=== PATIENT | female | born 1955 | race Caucasian/White ===

== ENCOUNTER 2017-06-23 14:11 | Inpatient (IN) ==
[2017-06-23 16:41] LABS: Basophils % 0.3 %; Eosinophils # 0.1 K/mcL (0.0-0.6); Eosinophils % 2.3 %; Hematocrit 35.5 % (35.3-44.9); Hemoglobin 11.5 g/dL (11.5-15.4); Immature Granulocytes % 0.2 % (0-4); Lymphocytes # 1.4 K/mcL (0.6-4.6); Lymphocytes % 22.1 %; Mean Corpuscular HGB Conc 32.4 g/dL (31.6-35.5); Mean Corpuscular Hemoglobin 29.6 pg (28.0-33.3); Mean Corpuscular Volume 91.3 fL (83.0-100.0); Mean Platelet Volume 10.6 fL (9.4-12.4); Monocytes # 0.5 K/mcL (0.0-1.3); Monocytes % 8.8 %; Neutrophils # 4.1 K/mcL (1.6-8.9); Platelet Count 182 K/mcL (140-400); Red Blood Count 3.89 M/mcL (3.82-4.97); Red Cell Distribution Width 14.5 % (11.5-14.5); Segmented Neutrophils % 66.3 %
[2017-06-23 16:53] LABS: Calcium 9.2 mg/dL (8.6-10.8); Potassium 4.1 mEq/L (3.5-4.5)
[2017-06-23] MEDS ORDERED: Nitroglycerin 0.4 MG TAB.SUBL SL PRN (17:05)
[2017-06-23] MEDS ORDERED: Aspirin 81 MG TAB.CHEW PO STA (17:05)
[2017-06-23] MEDS ORDERED: Furosemide 40 MG in 0.9 % Sodium Chloride 50 ML IVPB ONE (17:29)
--- NOTE | 2017-06-23 17:52 | Emergency Department Note ---
Disposition Clinical Impression: Acute CHF (congestive heart failure) Qualifiers: Congestive heart failure type: unspecified congestive heart failure type Qualified Code(s): I50.9 - Heart failure, unspecified Chest pain Qualifiers: Chest pain type: unspecified Qualified Code(s): R07.9 - Chest pain, unspecified Disposition: Admitted As Inpatient Condition: Fair Time of Disposition: 18:00 General Adult HPI - General Chief complaint: ED Shortness of Breath/Dyspnea Stated complaint: STEPHANI Time Seen by Provider: 06/23/17 16:18 Source: patient Mode of arrival: ambulatory Limitations: no limitations Nursing Notes Reviewed: Yes Vital Signs Reviewed: Yes - History of Present Illness HPI Narrative: Patient is a 62-year-old female with a past medical history of COPD and chronic renal failure stage III is presenting with complaint of shortness of breath, chest pressure and a cough that has been going on for the past 2 weeks. She was initially treated with a 5 day course of Z-Michael however symptoms have not been improving. She states she has felt nauseous and beginning but no longer feels nauseous now. She has had night sweats past couple of nights. She has no cardiac history and she does not remember her last stress test. Pain Scale: 5 - Related Data Home Medications Medication Instructions Recorded Confirmed Albuterol Sulfate [Proair 2 inh IN Q4H PRN 06/20/15 06/23/17 Respiclick] Aspirin Enteric Coated [Aspirin EC] 81 mg PO DAILY 06/20/15 06/23/17 Insulin ASPART [NovoLOG] 1 unit SQ AD PRN 06/20/15 06/23/17 Albuterol Neb [Proventil Neb] 2.5 mg IH Q4HR PRN 12/31/16 06/23/17 Atenolol [Tenormin] 25 mg PO DAILY 12/31/16 06/23/17 Atorvastatin Calcium [Lipitor] 80 mg PO HS 12/31/16 06/23/17 Budesonide/Formoterol 160/4.5 2 puff IH BIDR 12/31/16 06/23/17 [Symbicort 160/4.5] Cholecalciferol (D-3) [Vitamin D] 5,000 unit PO DAILY 12/31/16 06/23/17 Citalopram Hydrobromide [Celexa] 40 mg PO DAILY 12/31/16 06/23/17 Folic Acid [Folic Acid] 0.8 mg PO BID 12/31/16 06/23/17 Montelukast [Singulair] 10 mg PO HS 12/31/16 06/23/17 Pregabalin [Lyrica] 150 mg PO BID 12/31/16 06/23/17 Valsartan [Diovan] 40 mg PO DAILY 12/31/16 06/23/17 Dulaglutide [Trulicity] 1.5 mg SQ QWEEK 06/23/17 06/23/17 Omeprazole [PriLOSEC] 40 mg PO DAILY 06/23/17 06/23/17 Previous Rx's Medication Instructions Recorded LORazepam [Ativan] 1 mg PO HS PRN #30 tablet 11/03/16 Ondansetron HCl [Zofran] 4 mg PO BID PRN #60 tablet 04/13/17 OxyCODONE Immed Rel [Roxicodone 5 5 mg PO Q8HR PRN #90 tablet 04/13/17 MG] Letrozole [Femara] 2.5 mg PO DAILY #30 tablet 06/03/17 Allergies Allergy/AdvReac Type Severity Reaction Status Date / Time anastrozole Allergy Itching Verified 12/31/16 11:03 exemestane Allergy Rash Verified 12/31/16 11:03 linagliptin [From Tradjenta] Allergy Rash Verified 12/31/16 11:03 All systems ED: reviewed and negative except as stated. Constitutional: Denies: fever, chills Cardiovascular: Reports: chest pain, dyspnea on exertion Respiratory: Reports: cough, dyspnea. Denies: wheezes Gastrointestinal: Reports: abdominal pain. Denies: nausea, vomiting Musculoskeletal: Reports: back pain Past Medical History - Past Medical History Medical history: Reports: asthma, cancer, CHF, COPD, diabetes, GERD, hyperlipidemia, hypertension, renal disease, other Surgical history: Reports: breast surgery, cholecystectomy, orthopedic, other Psychiatric history: Reports: depression PERSONNEL OFFICER history: Reports: no PERSONNEL OFFICER history - Social History Smoking Status: Never smoker Smokeless Tobacco Status: No Alcohol use: Reports: none Drug use: Reports: none Physical Exam - General Limitations: no limitations General appearance: alert, in no apparent distress - Head Head exam: atraumatic, normocephalic, normal inspection - Eye Eye exam: Present: normal appearance, PERRL, EOMI - ENT ENT exam: normal exam, normal oropharynx, mucous membranes dry - Neck Neck exam: Present: normal inspection, full ROM, trachea midline - Chest Chest inspection: Present: normal inspection, symmetric chest wall rise. Absent : tenderness - Respiratory Respiratory exam: Present: normal lung sounds bilaterally. Absent: respiratory distress - Cardiovascular Cardiovascular exam: Present: regular rate, normal rhythm, normal heart sounds - Abdominal Exam Abdominal exam: Present: soft, Non-Tender, normal bowel sounds - Extremities Exam Extremities exam: Present: normal inspection, full ROM. Absent: tenderness - Back Exam Back exam: Present: normal inspection, full ROM. Absent: tenderness - Neurological Exam Neurological exam: Present: alert, oriented X3 - Psychiatric Psychiatric exam: Present: normal affect, normal mood - Skin Skin exam: Present: warm, dry, intact, normal color Course Course Narrative: The cardiac work up of this patient including a troponin, EKG and chest x-ray. I will also order a BNP. I will also order for the patient to receive aspirin and nitroglycerin since she is currently having her chest pressure-like pain. - Reevaluation(s) Reevaluation #1: Reviewed the patient's labs. She does have elevated BNP, CBC is unremarkable, and troponin was negative. Her creatinine and GFR were read normal however this is consistent with her old labs and her history of kidney disease. Her chest x- ray showed early signs of CHF. I ordered 40 mg IV of Lasix for the patient however understand that she is hard stick for IV and nurses are working on an IV for her. I discussed these findings with the patient I discussed my plan to admit the patient for new acute onset CHF and her chest pain. Patient agrees with this plan. Time: 18:14 Vital Signs Temperature 98.2 F 06/23/17 14:34 Pulse Rate 64 06/23/17 14:34 Respiratory Rate 18 06/23/17 14:34 Blood Pressure 165/72 06/23/17 14:34 O2 Sat by Pulse Oximetry 94 06/23/17 14:34 Temperature 98.2 F 06/23/17 14:34 Pulse Rate 64 06/23/17 14:34 Respiratory Rate 18 06/23/17 14:34 Blood Pressure 165/72 06/23/17 14:34 O2 Sat by Pulse Oximetry 94 06/23/17 14:34 Oxygen Delivery Oxygen Delivery Room Air Medical Decision Making - Medical Records Medical records reviewed: Yes I reviewed the patient's medical records. - Lab Data Lab results reviewed: Yes I reviewed the patient's lab results. Result diagrams: 06/23/17 16:27 06/23/17 16:27 Lab Results 06/23/17 06/23/17 06/23/17 Range/Units 16:27 16:27 16:27 WBC 6.1 (4.3-11.1) K/mcL RBC 3.89 (3.82-4.97) M/mcL Hgb 11.5 (11.5-15.4) g/dL Hct 35.5 (35.3-44.9) % MCV 91.3 (83.0-100.0) fL MCH 29.6 (28.0-33.3) pg MCHC 32.4 (31.6-35.5) g/dL RDW 14.5 (11.5-14.5) % Plt Count 182 (140-400) K/mcL MPV 10.6 (9.4-12.4) fL Immature Gran % 0.2 (0-4) % Seg Neutrophils % 66.3 % Lymphocytes % 22.1 % Monocytes % 8.8 % Eosinophils % 2.3 % Basophils % 0.3 % Neutrophils # 4.1 (1.6-8.9) K/mcL Lymphocytes # 1.4 (0.6-4.6) K/mcL Monocytes # 0.5 (0.0-1.3) K/mcL Eosinophils # 0.1 (0.0-0.6) K/mcL Basophils # 0.0 (0.0-0.2) K/mcL Sodium 139 (136-145) mEq/L Potassium 4.1 (3.5-4.5) mEq/L Chloride 105 (98-109) mEq/L Carbon Dioxide 29 (19-29) mEq/L BUN 25 H (7-20) mg/dL Creatinine 1.46 H (0.57-1.11) mg/dL Est GFR ( Amer) 44 L (> 60) Est GFR (Non-Af Amer) 36 L (> 60) BUN/Creatinine Ratio 17 (6-26) Glucose 121 H (70-99) mg/dL Calculated Osmolality 294 (280-300) Lactic Acid 0.8 (0.5-2.2) mmol/L Calcium 9.2 (8.6-10.8) mg/dL Troponin I (0-0.03) ng/mL B-Natriuretic Peptide (0-100) pg/mL 06/23/17 06/23/17 Range/Units 16:27 16:27 WBC (4.3-11.1) K/mcL RBC (3.82-4.97) M/mcL Hgb (11.5-15.4) g/dL Hct (35.3-44.9) % MCV (83.0-100.0) fL MCH (28.0-33.3) pg MCHC (31.6-35.5) g/dL RDW (11.5-14.5) % Plt Count (140-400) K/mcL MPV (9.4-12.4) fL Immature Gran % (0-4) % Seg Neutrophils % % Lymphocytes % % Monocytes % % Eosinophils % % Basophils % % Neutrophils # (1.6-8.9) K/mcL Lymphocytes # (0.6-4.6) K/mcL Monocytes # (0.0-1.3) K/mcL Eosinophils # (0.0-0.6) K/mcL Basophils # (0.0-0.2) K/mcL Sodium (136-145) mEq/L Potassium (3.5-4.5) mEq/L Chloride (98-109) mEq/L Carbon Dioxide (19-29) mEq/L BUN (7-20) mg/dL Creatinine (0.57-1.11) mg/dL Est GFR ( Amer) (> 60) Est GFR (Non-Af Amer) (> 60) BUN/Creatinine Ratio (6-26) Glucose (70-99) mg/dL Calculated Osmolality (280-300) Lactic Acid (0.5-2.2) mmol/L Calcium (8.6-10.8) mg/dL Troponin I 0.00 (0-0.03) ng/mL B-Natriuretic Peptide 134 H (0-100) pg/mL - Radiology Data Radiology results reviewed: Yes I reviewed the patient's radiology results. Chest X-Ray 06/23/17 14:37 IMPRESSION: Findings suggesting early CHF with borderline cardiac size and early perihilar edema . D/ / Varun Nick MD / Varun Nick MD Interpreting Provider: Varun Nick MD - EKG Data EKG #1 EKG attestation: Yes I reviewed and interpreted this EKG. EKG results narrative: I interpret this EKG done at 17:32. EKG is sinus bradycardia at a rate of 59. Normal axis. NM is 160, QRS is 86, QT is 423 and these are within normal limits. No ST elevations or depressions or Q waves present. This is unchanged when compared to her EKG that was done on April 222015 Attestation Statement - Attestation Attestation: I personally interviewed and examined this patient and my medical decision- making was reviewed with the Resident Physician, Dr. Silva. I agree with the documented findings, disposition and treatment plan as described except to the extent set forth below. Patient is a 62-year-old white female who presented to the emergency department today with chest pressure sensation associated with some gradually worsening shortness of breath. Patient is currently complaining of some mild chest tightness that she describes as a heaviness sensation. I agree with the patient's physical exam findings as documented. Patient's EKG shows no acute findings of ischemia. Patient was in no respiratory distress on arrival with stable vital signs. Patient's chest x-ray shows mild CHF which is new for her she has no prior history of such. Patient received aspirin and nitroglycerin and Lasix here remainder of labs are unremarkable with the exception of her baseline renal insufficiency. Patient will be admitted for further evaluation of chest pain and CHF. Discussed with hospitalist who accepted patient for admission.
[2017-06-23] MEDS ORDERED: Naloxone 0.4 MG/ML INJ IVP PRN (19:49)
[2017-06-23] MEDS ORDERED: *HR* LORazepam 1 MG TABLET PO PRN (19:52)
[2017-06-23] MEDS ORDERED: Albuterol 2.5 MG/3 ML NEBULIZER IH PRN (19:52)
--- NOTE | 2017-06-23 19:58 | Internal Med History&Physical ---
<Phil Mackay - Last Filed: 06/23/17 20:27> Date of Encounter: 06/23/17 Time of Encounter: 19:55 Assessment and Plan (1) SOB (shortness of breath) Current visit: Yes Status: Acute Patient reports worsening sob with exertion of 2 weeks hx of restrictive lung disease 2nd to obesity, Sleep apnea, HTN, CKD III never smoker not on O2 and not requiring supplemental O2 Physical exam: Diminished lung sounds without crackles, 1+ pedal edema bilaterally CXR shows enlarged heart with pulmonary edema albumin WNL reports 3L water intake with uncontrolled salt intake Etiology: undiagnosed congestive heart failure Plan: Lasix 40mg IVP BID strict I/O salt and fluid restricted diet Echocardiogram CHF education BIPAP at night patient currently not requiring supplemental O2 (2) Chest pain Current visit: Yes Status: Acute reports substernal chest pressure with exertion and nausea that improves with rest and associated with worsening sob no previous cardiac work up on file Trop wnl EKG sinus bradycardia without ST elevations or ST depressions. No changes from previous. Plan: Echocardiogram As patient is not likely CHF exacerbation we will obtain stress test once this is resolved Continue home aspirin, statin, beta luis cardiac telemetry trend troponin Qualifiers: Chest pain type: chest pain due to myocardial ischemia Ischemic chest pain type: stable angina pectoris Qualified Code(s): I20.8 - Other forms of angina pectoris (3) Restrictive lung disease Current visit: Yes Status: Acute recent PFT indicate restrictive lung disease This is likely a big contributing factor to patient's shortness of breath Patient is on BiPAP at home. Plan: BiPAP Continues pulse ox (4) Hypertension Current visit: Yes Status: Acute Patient is a history of hypertension. States her blood pressure normally runs in the 130s systolic On presentation patient blood pressure was in the 180s and was cut down to 160s with administration of IV Lasix. Reports medication compliance This acute increase in blood pressure is likely 2nd to fluid overload plan: continue home medications IV lasix continue to monitor Qualifiers: Hypertension type: essential hypertension Qualified Code(s): I10 - Essential (primary) hypertension (5) Diabetes mellitus Current visit: Yes Status: Acute hx of DM controlled HGA1c 6.8 has insulin pump: baseline 3 units/hr and takes 11 units before lunch Plan: cardiac ADA diet d/c insulin pump for now and start on low SSI and insulin regimen by weight to prevent hypoglycemia ACHS Qualifiers: Diabetes mellitus type: type 2 Diabetes mellitus complication status: with unspecified complications Diabetes mellitus retirement insulin use: with termite control servicer use Qualified Code(s): E11.8 - Type 2 diabetes mellitus with unspecified complications; Z79.4 - termite control servicer (current) use of insulin (6) DVT prophylaxis Current visit: Yes Status: Acute heparin sq (7) CKD (chronic kidney disease) stage 3, GFR 30-59 ml/min Current visit: Yes Status: Acute CKD stage III stable 2nd to diabetic nephropahty and insetting of hx of HTN plan: continue to mointor BMP in AM (8) Breast cancer Current visit: Yes Status: Acute hx of invasive ductal carcinoma of left breast diasgones in 2013 s/p left lumpectomy s/p radiation and chemotheraphy on letorozole adjuvant theraphy plan: continue letrozole Qualifiers: Breast location: unspecified site of breast Estrogen receptor status: unspecified Patient sex: female Laterality: left Qualified Code(s): C50.912 - Malignant neoplasm of unspecified site of left female breast Internal Medicine - H&P: HPI Chief complaint: Shortness of breath Admitted From: Home Plans for Post Hospital Care: Home History of present illness: Ms. Warren is a 62 year old female presents with chief complaint of shortness of breath. Patient states that 2 weeks ago she had worsening shortness of breath, night sweats with productive cough and went to her PCP who prescribed her azithromycin. At that time her symptoms of productive sputum,improved but is not completely resolved. Her shortness of breath continued until today with worsening progression. Currently she become shortness of breath while eating food and walking minimum of 10 feet, and laying flat.She denies fevers, chills. Patient reports substernal chest pressure which started 2 weeks ago, nonradiating, intermittent associated with nausea worsening with exertion and improves with rest. States she has baseline shortness of breath with exertion however this is worse. Denies passing out, blurry vision, palpitations. Reports drinking 3 L of water every day and has not high salt diet. Currently patient is not requiring supplemental oxygen. Past Med Surg Social Fam HX - Past Medical History Medical history: asthma, cancer, COPD, diabetes, GERD, hyperlipidemia, hypertension, renal disease, other Psychiatric history: depression - Past Surgical History Surgical History: breast surgery, cholecystectomy, orthopedic, other - Social History Smoking Status: Never smoker Smokeless Tobacco Status: No Alcohol use: none Drug use: none - Family History Mother Hx Family Cardiac Disorders: Yes Father Hx Family Cardiac Disorders: Yes Internal Medicine - H&P: Meds Albuterol Sulfate [Proair Respiclick] 2 inh IN Q4H PRN 06/20/15 [History] Aspirin Enteric Coated [Aspirin EC] 81 mg PO DAILY 06/20/15 [History] Insulin ASPART [NovoLOG] 1 unit SQ AD PRN 06/20/15 [History] LORazepam [Ativan] 1 mg PO HS PRN #30 tablet 11/03/16 [Rx] Albuterol Neb [Proventil Neb] 2.5 mg IH Q4HR PRN 12/31/16 [History] Atenolol [Tenormin] 25 mg PO DAILY 12/31/16 [History] Atorvastatin Calcium [Lipitor] 80 mg PO HS 12/31/16 [History] Budesonide/Formoterol 160/4.5 [Symbicort 160/4.5] 2 puff IH BIDR 12/31/16 [ History] Cholecalciferol (D-3) [Vitamin D] 5,000 unit PO DAILY 12/31/16 [History] Citalopram Hydrobromide [Celexa] 40 mg PO DAILY 12/31/16 [History] Folic Acid [Folic Acid] 0.8 mg PO BID 12/31/16 [History] Montelukast [Singulair] 10 mg PO HS 12/31/16 [History] Pregabalin [Lyrica] 150 mg PO BID 12/31/16 [History] Valsartan [Diovan] 40 mg PO DAILY 12/31/16 [History] Ondansetron HCl [Zofran] 4 mg PO BID PRN #60 tablet 04/13/17 [Rx] OxyCODONE Immed Rel [Roxicodone 5 MG] 5 mg PO Q8HR PRN #90 tablet 04/13/17 [Rx] Letrozole [Femara] 2.5 mg PO DAILY #30 tablet 06/03/17 [Rx] Dulaglutide [Trulicity] 1.5 mg SQ QWEEK 06/23/17 [History] Omeprazole [PriLOSEC] 40 mg PO DAILY 06/23/17 [History] 3 Allergy/AdvReac Type Severity Reaction Status Date / Time anastrozole Allergy Itching Verified 12/31/16 11:03 exemestane Allergy Rash Verified 12/31/16 11:03 linagliptin [From Tradjenta] Allergy Rash Verified 12/31/16 11:03 All Systems PM: A 10-system review of systems was performed and is negative for pertinent findings except as documented above in the HPI. Review of systems: Constitutional: Denies fever, chills HEENT: Denies headache, vision changes, neck pain, rhinorrhea. Reports Heart: Reports chest pressure, denies palpitations Lungs: For shortness of breath with exertion, like a little productive cough Abdomen: Denies abdominal pain vomiting diarrhea. Reports nausea Back: Denies back pain Skin: Denies chest rash, open sores Kidney: Denies dysuria, hematuria. Reports polyuria Extremities: Reports lower extremity swelling, denies pain Neuro: Denies numbness, and tingling - Constitutional Vitals: Temp Pulse Resp BP Pulse Ox 98.2 F 64 18 160/94 94 06/23/17 14:34 06/23/17 14:34 06/23/17 19:45 06/23/17 19:45 06/23/17 14:34 - Other Additional findings: General: Alert and oriented to place time and situation. Mild distress HEENT: Head atraumatic, normocephalic, EOMI, PERRLA, neck nontender to palpation , absent Lymphadenopathy, Moist Mucous Membranes, Heart: Regular rate and rhythm with no murmur (distant) Lungs: Diminished, clear without crackles Abdomen: Soft nontender, nondistended positive bowel sounds Extremities: 1+ bilateral pitting edema Skin: Warm and dry Neuro: Cranial nerves II through XII intact, sensation equal bilaterally, strength upper and lower extremity 5/5, alert oriented 3 Vascular: Pedal and radial pulses 2 out of 4 Internal Med - H&P Results - Labs CBC & Chem 7: 06/23/17 16:27 06/23/17 16:27 <Solomon Joseph - Last Filed: 06/23/17 23:00> Date of Encounter: 06/23/17 Internal Medicine - H&P: HPI History of present illness: Ms. Warren is a 62 year old female All Systems PM: A 10-system review of systems was performed and is negative for pertinent findings except as documented above in the HPI. - Constitutional Vitals: Temp Pulse Resp BP Pulse Ox 97.5 F L 63 17 159/62 93 06/23/17 20:31 06/23/17 20:31 06/23/17 20:31 06/23/17 20:31 06/23/17 20:31 Internal Med - H&P Results - Labs CBC & Chem 7: 06/23/17 16:27 06/23/17 16:27 - Attending Attestation I examined this patient and my medical decision-making was reviewed with the Resident Physician, Dr. Phil Morales. I agree with the documented findings, disposition and treatment plan as described except to the extent set forth below. I have independently obtained history and examined the patient and my findings are summarized below: She presented with shortness of breath, she reports to me severe shortness of breath with minimal exertion such as walking a few feet, she appears to get moderately out of breath while talking. On exam she is in no acute distress lungs are clear, heart exam reveals regular S1-S2 with no murmurs. Lower extremity 1+ pitting edema EKG reviewed by myself shows a sinus bradycardia 59 bpm unchanged from 2015 except for the bradycardia. No ischemic changes Plan: IV Lasix for diuresis, cafeteria monitor, trend troponin, check echocardiogram. Consult cardiology due to newly diagnosed acute heart failure.
[2017-06-23] MEDS: Budesonide/Formoterol 160/4.5 MDI IH SCH (20:13)
[2017-06-23] MEDS ORDERED: D5% in Water 1,000 ML IVC PRN (20:26)
[2017-06-23] MEDS ORDERED: *HR* Dextrose 50 % in Water (Syg) 50 ML SYRINGE IVP PRN (20:26)
[2017-06-23] MEDS ORDERED: Dextrose Gel 15 GM PO PRN ×2 (20:26)
[2017-06-23] MEDS: Insulin LISPRO 300 UNITS/3 ML VIAL SQ SCH (21:40)
[2017-06-23] MEDS: Furosemide 40 MG/4 ML VIAL IVP SCH (21:41)
[2017-06-23] MEDS: Insulin DETEMIR 100 UNIT/ML X5UNITS SQ SCH (21:45)
[2017-06-23] MEDS: Pregabalin 75 MG CAPSULE PO SCH (21:46)
[2017-06-23] MEDS: *HR* Heparin 5,000 UNIT/ML VIAL SQ SCH (21:46)
[2017-06-24 05:14] LABS: Hematocrit 36.4 % (35.3-44.9); Immature Granulocytes % 0.4 % (0-4); Lymphocytes % 20.7 %; Mean Corpuscular Hemoglobin 29.8 pg (28.0-33.3); Mean Corpuscular Volume 90.3 fL (83.0-100.0); Mean Platelet Volume 10.7 fL (9.4-12.4); Platelet Count 194 K/mcL (140-400); Red Blood Count 4.03 M/mcL (3.82-4.97); Red Cell Distribution Width 14.3 % (11.5-14.5); Segmented Neutrophils % 67.4 %
[2017-06-24 05:15] LABS: Basophils % 0.5 %; Eosinophils # 0.2 K/mcL (0.0-0.6); Lymphocytes # 1.2 K/mcL (0.6-4.6); Monocytes # 0.5 K/mcL (0.0-1.3); Neutrophils # 3.8 K/mcL (1.6-8.9)
[2017-06-24 05:29] LABS: Calcium 9.7 mg/dL (8.6-10.8); Potassium 4.1 mEq/L (3.5-4.5)
[2017-06-24] MEDS: *HR* Heparin 5,000 UNIT/ML VIAL SQ SCH ×3 (06:16→21:52)
[2017-06-24] MEDS: *HR* OxyCODONE Immed Rel 5 MG TABLET PO PRN (06:18)
[2017-06-24] MEDS: Insulin LISPRO 300 UNITS/3 ML VIAL SQ SCH ×7 (09:11→21:51)
[2017-06-24] MEDS: Letrozole 2.5 MG TABLET PO SCH (09:13)
[2017-06-24] MEDS: Aspirin Enteric Coated 81 MG Tablet PO SCH (09:13)
[2017-06-24] MEDS: Valsartan 80 MG TABLET PO SCH (09:13)
[2017-06-24] MEDS: Pregabalin 75 MG CAPSULE PO SCH ×2 (09:15→21:52)
[2017-06-24] MEDS: Furosemide 40 MG/4 ML VIAL IVP SCH ×2 (09:15→17:42)
--- NOTE | 2017-06-24 09:30 | Cardiology Consult Note ---
Date of Encounter: 06/24/17 Time of Encounter: 08:45 Assessment and Plan (1) Diastolic CHF Current Visit: Yes Status: Acute Patient has risk factors for CHF including diabetes, HLD, HTN, and obesity. Her BNP on arrival was 134. EKG shows a sinus rhythm with borderline bradycardia. Chest x-ray shows early CHF. An echocardiogram was performed earlier today and showed signs of moderate LV diastolic dysfunction. Pharmacologic nuclear stress test was ordered. Patient's weight since arrival has dropped from 108.9 to 106.8 kg. Continue lasix. Qualifiers: Qualified Code(s): I50.30 - Unspecified diastolic (congestive) heart failure (2) Hypertension Current Visit: Yes Status: Acute Patient's BP range has been from 147/71-165/72. Patient had refused lasix night. Continue lasix, valsartan, and atenolol. Qualifiers: Hypertension type: essential hypertension Qualified Code(s): I10 - Essential (primary) hypertension (3) Hyperlipidemia Current Visit: Yes Status: Acute Continue atorvastatin. Qualifiers: Qualified Code(s): E78.5 - Hyperlipidemia, unspecified Discussion w patient/family: The assessment and plan as outlined above was discussed with the patient and/or family members who expressed understanding and agreement. All questions were answered. Thank you for involving us in the care of your patient. Please call with any questions. History of Present Illness Consult date: 06/24/17 Requesting physician: Phil Mackay Consult reason: New CHF exacerbation Chief complaint: Shortness of breath History of present illness: Ms. Warren is a 62 year old female with a PMH of asthma, COPD, diabetes, hyperlipidemia, HTN, and renal disease that presents for shortness of breath. Patient says that she has had a baseline shortness of breath for several years due to her asthma, but before two weeks ago she was able to walk around the house and perform her household duties. However now, she is unable to do so. She says just standing up will make her short of breath and dizzy. She denies any syncope or vision blurriness. She says she has also trouble breathing while laying down. She denies any swelling. She admits to productive coughing but denies any fever, chills, or night sweats. She denies any chest pain, numbness/ tingling, or heart palpitations. Patient says that she drinks 3 L of fluid everyday. Past Med Surg Social Fam HX - Past Medical History Medical history: asthma, cancer, COPD, diabetes, GERD, hyperlipidemia, hypertension, renal disease, other Psychiatric history: depression - Past Surgical History Surgical History: breast surgery, cholecystectomy, orthopedic, other - Social History Smoking Status: Never smoker Smokeless Tobacco Status: No Alcohol use: none Drug use: none - Family History Mother Hx Family Cardiac Disorders: Yes Father Hx Family Cardiac Disorders: Yes Medications and Allergies Albuterol Sulfate [Proair Respiclick] 2 inh IN Q4H PRN 06/20/15 [History] Aspirin Enteric Coated [Aspirin EC] 81 mg PO DAILY 06/20/15 [History] Insulin ASPART [NovoLOG] 1 unit SQ AD PRN 06/20/15 [History] LORazepam [Ativan] 1 mg PO HS PRN #30 tablet 11/03/16 [Rx] Albuterol Neb [Proventil Neb] 2.5 mg IH Q4HR PRN 12/31/16 [History] Atenolol [Tenormin] 25 mg PO DAILY 12/31/16 [History] Atorvastatin Calcium [Lipitor] 80 mg PO HS 12/31/16 [History] Budesonide/Formoterol 160/4.5 [Symbicort 160/4.5] 2 puff IH BIDR 12/31/16 [ History] Cholecalciferol (D-3) [Vitamin D] 5,000 unit PO DAILY 12/31/16 [History] Citalopram Hydrobromide [Celexa] 40 mg PO DAILY 12/31/16 [History] Folic Acid [Folic Acid] 0.8 mg PO BID 12/31/16 [History] Montelukast [Singulair] 10 mg PO HS 12/31/16 [History] Pregabalin [Lyrica] 150 mg PO BID 12/31/16 [History] Valsartan [Diovan] 40 mg PO DAILY 12/31/16 [History] Ondansetron HCl [Zofran] 4 mg PO BID PRN #60 tablet 04/13/17 [Rx] OxyCODONE Immed Rel [Roxicodone 5 MG] 5 mg PO Q8HR PRN #90 tablet 04/13/17 [Rx] Letrozole [Femara] 2.5 mg PO DAILY #30 tablet 06/03/17 [Rx] Dulaglutide [Trulicity] 1.5 mg SQ QWEEK 06/23/17 [History] Omeprazole [PriLOSEC] 40 mg PO DAILY 06/23/17 [History] 3 Allergy/AdvReac Type Severity Reaction Status Date / Time anastrozole Allergy Itching Verified 12/31/16 11:03 exemestane Allergy Rash Verified 12/31/16 11:03 linagliptin [From Tradjenta] Allergy Rash Verified 12/31/16 11:03 All Systems Review: A 10-system review of systems was performed and is negative for pertinent findings except as documented above in the HPI. - Constitutional Constitutional: fatigue, headache(s) - EENT Eyes: no blurred vision, no loss of vision - Cardiovascular Cardiovascular: dyspnea at rest, dyspnea on exertion, orthopnea, no chest pain at rest, no chest pain with exertion, no irregular heart rhythm, no leg edema, no lightheadedness, no palpitations, no syncope - Respiratory Respiratory: cough, dyspnea - Gastrointestinal Gastrointestinal: no abdominal pain - Neurological Neurological: dizziness, no loss of vision, no numbness, no syncope, no tingling Physical Examination Vital Signs, Last 4 Hours Temp Pulse Resp BP Pulse Ox 06/24/17 08:59 98.2 F 59 16 167/78 93 General: Conversant, No Apparent Distress Neck: No JVD, Normal carotid pulses Cardiac: Reg Rate and Rhythm, Normal S1 and S2, No Murmur, Other (Distant heart sounds. ) Lungs: Normal Breath Sounds, No Wheeze, Rales, Rhonchi Neuro: Alert and responsive Abdomen: Soft, Non-Tender Musculoskeletal: No Chest Wall Tenderness Extremities: No Clubbing, No Cyanosis, No Edema, Normal Pulses Results 06/24/17 04:42 06/24/17 04:42 Lab Results 06/24/17 06/24/17 04:42 04:42 WBC 5.7 Hgb 12.0 Hct 36.4 Plt Count 194 Sodium 140 Potassium 4.1 Chloride 104 Carbon Dioxide 25 BUN 26 H Creatinine 1.50 H Glucose 205 H Calcium 9.7 Laboratory Tests 06/23/17 06/23/17 16:27 16:27 Troponin I 0.00 B-Natriuretic Peptide 134 H - Imaging and Cardiology Chest Xray: report reviewed (06/23/17: Early CHF with borderline cardiac size and early perihilar edema.) Echo: report reviewed (06/24/17: Normal LV systolic function, LVEF = 60-65%. Moderate left ventricular diastolic dysfunction. Normal RV size and function. Mild mitral regurgitation. Moderate pulmonary HTN. Estimated RVSP = 51 mmHg.) - EKG Interpretation EKG results cardiology: personally reviewed (06/23/17: Sinus bradycardia with poor R wave progression in v3 and v4. No significant changes from old EKG on .) Consult Discharge Plan - Plan Referrals: NONE,PCP [Primary Care Provider] -
[2017-06-24] MEDS: Budesonide/Formoterol 160/4.5 MDI IH SCH ×2 (10:36→20:36)
[2017-06-24] MEDS ORDERED: Regadenoson 0.4 MG/5 ML SYRINGE IVP ONE (11:38)
[2017-06-24] MEDS ORDERED: *HR* Morphine 2 MG/ML SYRINGE IVP PRN (11:49)
[2017-06-24] MEDS: Acetaminophen 325 MG TABLET PO PRN ×2 (13:24→21:55)
--- NOTE | 2017-06-24 14:52 | Electrocardiograph Report ---
[address] [place], [place] [address] Test Date: 2017-06-23 Pat Name: Elizabeth Warren Department: 0 Room: 3B46 Gender: F Director Imaging: : 1955 Requested By: Gary Michel Order Number: [id number] Reading MD: Hiren Velasquez MD Measurements Intervals Tolar Rate: 59 P: 66 ND: 160 QRS: 17 QRSD: 86 T: 53 QT: 423 QTc: 423 Interpretive Statements SINUS BRADYCARDIA Electronically Signed On 06-24-2017 14:50:38 EDT by Hiren Velasquez MD
[2017-06-24] MEDS: Ondansetron 4 MG/2 ML VIAL IVP PRN (15:24)
--- NOTE | 2017-06-24 17:12 | Internal Med Progress Note ---
Date of Encounter: 06/24/17 Time of Encounter: 16:45 - Assessment and plan (1) Diastolic CHF Current Visit: Yes Status: Acute Assessment and plan: Chest x-ray and echocardiogram consistent with acute onset of diastolic heart failure. Diuresing her at this time and monitoring her renal functioning. She has been educated at length on fluid and sodium restricted diets. Of note, she states that she drinks 3 cups of coffee in the morning and then has 4 32 ounce glasses of water per day. She has been educated on 2 L restriction and on sodium restricted diet. Her sisters at the bedside and states that the patient eats an entire bag of popcorn every night prior to bed. We will continue education. Second part of her stress test is pending for tomorrow morning. Possible discharge tomorrow after stress test pending clinical outcomes. Cardiology is also on board. ITS Impressions Chest X-Ray 06/23/17 14:37 IMPRESSION: Findings suggesting early CHF with borderline cardiac size and early perihilar edema . D/ / Varun Nick MD / Varun Nick MD Interpreting Provider: Varun Nick MD Echocardiogram Date of Study: 06/24/2017 Impressions: Normal LV systolic function, LVEF 60-65%. Moderate left ventricular diastolic dysfunction. Normal right ventricular size and function. Mild mitral regurgitation. Moderate pulmonary hypertension. Estimated RVSP = 51 mmHg. (2) Chest pain Current Visit: Yes Status: Resolved Assessment and plan: Patient denies chest pain at this time. Troponins negative. Echocardiogram revealing ejection fraction of 60-65% with moderate diastolic dysfunction, mild MR, moderate pulmonary hypertension. Second part of her stress test tomorrow morning. If unremarkable, anticipate discharge pending clinical outcomes. Qualifiers: Chest pain type: chest pain due to myocardial ischemia Ischemic chest pain type: stable angina pectoris Qualified Code(s): I20.8 - Other forms of angina pectoris (3) SOB (shortness of breath) Current Visit: Yes Status: Acute Assessment and plan: Examination consistent with acute onset of diastolic heart failure, see prior note. Patient stating her shortness of breath is improving. She is tolerating room air. (4) Restrictive lung disease Current Visit: Yes Status: Chronic (5) Hypertension Current Visit: Yes Status: Chronic Assessment and plan: Borderline hypertensive at times, currently normotensive, will continue to trend and adjust medications as indicated. Qualifiers: Hypertension type: essential hypertension Qualified Code(s): I10 - Essential (primary) hypertension (6) Diabetes mellitus Current Visit: Yes Status: Chronic Assessment and plan: Controlled with a recent A1c of 6.8%. Continue sliding scale while admitted. Of note, patient was concerned that she was not receiving her to loosely well admitted-inpatient protocol of insulin only while admitted explained to the patient who understood. (7) CKD (chronic kidney disease) stage 3, GFR 30-59 ml/min Current Visit: Yes Status: Chronic Assessment and plan: Currently consistent with her baseline. We will continue to trend as we diurese her. (8) Breast cancer Current Visit: Yes Status: Chronic Assessment and plan: Patient reporting history of invasive ductal carcinoma of left breast diagnosed in 2013 status post left lobectomy, radiation, chemotherapy. Continue letorozole. (9) Hyperlipidemia Current Visit: Yes Status: Chronic Assessment and plan: Lipid panel mildly abnormal with an LDL of 112. Continue statin. Recommend low -cholesterol diet as well. Qualifiers: Hyperlipidemia type: unspecified Qualified Code(s): E78.5 - Hyperlipidemia , unspecified (10) Morbid obesity with BMI of 40.0-44.9, adult Current Visit: Yes Status: Chronic (11) DVT prophylaxis Current Visit: Yes Status: Acute Assessment and plan: Subcutaneous heparin - Subjective Interval history: Patient seen and examined. On examination, patient sitting upright in bed conversing with her sister. Patient stating she is feeling better. She states she had a headache earlier today but it is improving. She denies chest pain and states her shortness of breath is improving. She also states she is very hungry. - Constitutional Vitals: Temp Pulse Resp BP Pulse Ox 98.3 F 54 16 124/64 91 06/24/17 15:35 06/24/17 15:35 06/24/17 15:35 06/24/17 15:35 06/24/17 15:35 General appearance: Present: A&O X 3, morbidly obese, pleasant, no acute distress, answers questions appropriately - Head Head exam: Present: atraumatic, normocephalic - Eye Eye exam: Present: PERRL, conjuntiva pink, sclera anicteric Pupils: Present: PERRL - Neck Neck exam general surgery: Present: supple, trachea midline. Absent: lymphadenopathy - Respiratory Respiratory exam: Present: decreased breath sounds. Absent: accessory muscle use, rales, respiratory distress, rhonchi, wheezes - Cardiovascular Cardiovascular exam: Present: RRR, +S1, +S2. Absent: diastolic murmur, gallop, rubs, systolic murmur - GI/Abdominal GI/Abdominal exam: Present: normal bowel sounds, soft, no peritoneal signs. Absent: distended, tenderness - Extremities Exam Extremities exam: Present: warm, radial pulses palpable and symmetrical. Absent : calf tenderness, cyanotic, pedal edema - Neurological Exam Neurological exam: Present: alert, CN II-XII intact, oriented X3, no focal deficits, strengths equal and symetr throughout. Absent: pronater drift, facial droop, speech deficit - Skin Skin exam: Present: dry, intact, pallor, warm Internal Medicine: Result - Labs CBC & Chem 7: 06/24/17 04:42 06/24/17 04:42 Labs: Short CBC 06/24/17 Range/Units 04:42 WBC 5.7 (4.3-11.1) K/mcL Hgb 12.0 (11.5-15.4) g/dL Hct 36.4 (35.3-44.9) % Plt Count 194 (140-400) K/mcL Neutrophils # 3.8 (1.6-8.9) K/mcL BMP 06/24/17 04:42 Sodium 140 Potassium 4.1 Chloride 104 Carbon Dioxide 25 BUN 26 H Creatinine 1.50 H Glucose 205 H Calcium 9.7 Consult Discharge Plan - Plan Referrals: Kathie Arreguin, DIRECTOR OF SCIENCE [Advanced Practice Nurse] - 06/30/17 11:00 am
[2017-06-24] MEDS: Insulin DETEMIR 100 UNIT/ML X5UNITS SQ SCH (21:51)
[2017-06-25] MEDS: Ondansetron 4 MG/2 ML VIAL IVP PRN (00:49)
[2017-06-25] MEDS: *HR* OxyCODONE Immed Rel 5 MG TABLET PO PRN (00:49)
[2017-06-25 05:31] LABS: Calcium 9.3 mg/dL (8.6-10.8); Potassium 4.2 mEq/L (3.5-4.5)
[2017-06-25] MEDS: *HR* Heparin 5,000 UNIT/ML VIAL SQ SCH ×2 (06:05→13:39)
[2017-06-25] MEDS: Budesonide/Formoterol 160/4.5 MDI IH SCH (07:54)
[2017-06-25] MEDS ORDERED: Furosemide 40 MG/4 ML VIAL IVP SCH (08:26)
[2017-06-25] MEDS: Letrozole 2.5 MG TABLET PO SCH (08:59)
[2017-06-25] MEDS: Insulin LISPRO 300 UNITS/3 ML VIAL SQ SCH ×4 (08:59→12:27)
[2017-06-25] MEDS: Aspirin Enteric Coated 81 MG Tablet PO SCH (08:59)
[2017-06-25] MEDS: Pregabalin 75 MG CAPSULE PO SCH (08:59)
[2017-06-25] MEDS: Valsartan 80 MG TABLET PO SCH (08:59)
--- NOTE | 2017-06-25 09:15 | Nuclear Medicine Stress Report ---
Regadenoson Nuclear 2 Name: Elizabeth Warren Date of Study: 06/24/2017 Date: 1955 Ht: 62.0 in Medical Record#: [id number] Age: 62 Wt: 235.0 lb Gender: Female Order #: [id number] Location: [facility] Room: [facility] Supervising Provider: Elizabeth Moreno CNP Reading Physician: Estrella Barnett DO Ordering Physician: Apryl Sevilla CNP Primary Care Physician: Kathie Arreguin CNP Stress Technologist: Ramu Ruvalcaba, JOHNNY, CCT Sample Weaver: Titi Mathew Indications: Chest Heaviness Impression: There is a predominately fixed perfusion defect involving the anterior wall with mild worsening during stress. Findings likely represent breast attenuation artifact. However, mild reversible ischemia cannot be excluded. Pharmacologic ECG was negative for ischemia at the level of heart rate achieved. Gated EF = 62%. Cardiology service aware of findings. History: Hypertension Diabetes Hypercholesteremia Stress Test Summary: Stress Test Type: Pharmacologic Regadenoson 0.4mg/5ml given IV Baseline Information: Initial Heart Rate: 56 Blood Pressure: 134/60 Stress Information: Stress Time: 4 min 00 sec Test Terminated Due to (primary): Completed Protocol Maximum Blood Pressure: 124/56 Maximum Heart Rate: 69 Percent Maximum Heart Rate Achieved: 44 Double Product: 8556 METS Reached: 1 Symptoms: Shortness of breath Nuclear Summary: SPECT myocardial perfusion imaging using Tc99m Sestamibi given intravenously was performed at rest and following cardiac stress testing. The resting images were obtained following initial dose of 35.2 mCi. Following stress an additional dose of 35.3 mCi was given at peak exercise or 30 seconds post regadenoson infusion. Medication Given: Time Medication Dose Units Route Findings: Stress Note * Resting ECG demonstrated sinus rhythm. * Pharmacologic stress ECG is negative for ischemia at level of heart rate achieved. * No arrhythmias were noted during stress. * Patient had no chest pain during stress. Hemodynamic responses * Normal hemodynamic responses to pharmacologic stress. Study Quality * Study quality was fair. Left Ventricle * The left ventricle is not dilated. TID * No evidence of transient ischemic dilatation. Lung Uptake * There is evidence of increase lung uptake. NORMALS * Normal wall motion. PERFUSION * There is a small sized mild intensity resting perfusion defect involving the mid anterior wall. * There is a small sized moderate intensity stress perfusion defect involving the mid to distal anterior wall. Wall motion is normal. Findings probably represent breast attenuation artifact. However, mild ischemia cannot be excluded. * Other segments demonstrate normal rest and stress perfusion. Gated EF % * Gated EF = 62%. Updated by Estrella Barnett on 06/25/2017 9:05:10 AM electronically signed on 06/25/2017 9:09:30 AM with status of Final
[2017-06-25] MEDS: Furosemide 40 MG/4 ML VIAL IVP SCH (09:23)
--- NOTE | 2017-06-25 11:46 | Cardiology Progress Note ---
Date of Encounter: 06/25/17 Time of Encounter: 08:45 Assessment and Plan (1) Diastolic CHF Current Visit: Yes Status: Acute Patient has risk factors for CHF including diabetes, HLD, HTN, and obesity. Her BNP on arrival was 134. EKG shows a sinus rhythm with borderline bradycardia. Chest x-ray shows early CHF. Echocardiogram showed signs of moderate LV diastolic dysfunction with an EF of 60-65%. Pharmacologic stress test results show a perfusion defect involving the anterior wall, however, this finding is likely due to a breast attenuation artifact. Given her negative troponin and an EKG which showed no signs of ischemia, a cardiac catheterization is currently not recommended. Patient's creatinine has increased from 1.5 to 2.07. Recommend cautious hydration and follow-up with outpatient. Continue lasix. Qualifiers: Congestive heart failure chronicity: acute Qualified Code(s): I50.31 - Acute diastolic (congestive) heart failure (2) Hypertension Current Visit: Yes Status: Chronic Patient's BP range has been from 112/64-167/78. Continue lasix, valsartan, and atenolol. Qualifiers: Hypertension type: essential hypertension Qualified Code(s): I10 - Essential (primary) hypertension (3) Hyperlipidemia Current Visit: Yes Status: Chronic Creatinine has increased from 1.5 to 2.07. Continue atorvastatin and monitor creatinine. Qualifiers: Hyperlipidemia type: unspecified Qualified Code(s): E78.5 - Hyperlipidemia , unspecified Discussion w patient/family: The assessment and plan as outlined above was discussed with the patient and/or family members who expressed understanding and agreement. All questions were answered. Thank you for involving us in the care of your patient. Please call with any questions. Subjective Principal diagnosis: Diastolic CHF Interval history: When spoken to today, she says the she feels alot better than yesterday. She denies any shortness of breath when laying down, however she still is short of breath when she gets up to walk, which she cites it is less severe than yesterday. Admits to minor dizziness when she sits up. She still complains of coughing, which has not changed since yesterday. She denies any chest pain, nausea, vomiting, vision changes, swelling, headaches, syncope, fever, or chills. Objective Vital Signs, Last 4 Hours Temp Pulse Resp BP Pulse Ox 06/25/17 09:09 94 06/25/17 08:01 98.2 F 52 18 113/62 94 06/25/17 07:55 16 89 General: Conversant, No Apparent Distress Neck: No JVD, Normal carotid pulses Cardiac: Reg Rate and Rhythm, Normal S1 and S2, No Murmur Lungs: Normal Breath Sounds, No Wheeze, Rales, Rhonchi Neuro: Alert and responsive Musculoskeletal: No Chest Wall Tenderness Extremities: No Clubbing, No Cyanosis, No Edema, Normal Pulses Results 06/24/17 04:42 06/25/17 04:39 Lab Results 06/25/17 04:39 Sodium 139 Potassium 4.2 Chloride 102 Carbon Dioxide 25 BUN 41 H D Creatinine 2.07 H Glucose 283 H Calcium 9.3 - Imaging and Cardiology Stress Test: report reviewed (06/25/17: There is a predominantly fixed perfusion defect involving the anterior wall with mild worsening during stress. Findings likely represent breast attenuation artifact. However, mild reversible ischemia cannot be excluded. Pharmacologic ECG was negative for ischemia at the level of HR achieved. EF = 62%.) Echo: report reviewed (06/24/17: Normal LV systolic function. EF = 60-65%. Moderate LV idastolic dysfunction. Normal RV size and function. Mild MR. Moderate pulmonary HTN. Estimated RVSP = 51 mm Hg.) Consult Discharge Plan - Plan Referrals: Kathie Arreguin MENTAL HEALTH SOCIAL WORKER [Advanced Practice Nurse] - 06/30/17 11:00 am
[2017-06-25 11:48] VITALS: BP 116/60
--- NOTE | 2017-06-25 14:03 | Discharge Summary ---
Date of Encounter: 06/25/17 Time of Encounter: 13:00 - Discharge Diagnosis (1) Diastolic CHF Priority: Primary Status: Acute Comments: Chest x-ray and echocardiogram consistent with acute onset of diastolic heart failure. She was successfully diuresed. Educated at length on fluid and sodium restricted diets. Follow closely outpatient. Qualifiers: Congestive heart failure chronicity: acute Qualified Code(s): I50.31 - Acute diastolic (congestive) heart failure (2) Chest pain Priority: Primary Status: Resolved Qualifiers: Chest pain type: chest pain due to myocardial ischemia Ischemic chest pain type: stable angina pectoris Qualified Code(s): I20.8 - Other forms of angina pectoris (3) SOB (shortness of breath) Priority: Primary Status: Resolved (4) Restrictive lung disease Priority: Secondary Status: Chronic (5) Hypertension Priority: Secondary Status: Chronic Comments: Borderline hypertensive at times while admitted but normotensive on day of discharge. Follow-up outpatient. Qualifiers: Hypertension type: essential hypertension Qualified Code(s): I10 - Essential (primary) hypertension (6) Diabetes mellitus Priority: Secondary Status: Chronic Comments: Controlled with a recent A1c of 6.8%. Follow-up outpatient. 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 We will have her hold her losartan for 2 days after discharge and have her followed closely outpatient. (8) Breast cancer Priority: Secondary Status: Chronic Comments: Patient reporting history of invasive ductal carcinoma of left breast diagnosed in 2014 status post left lobectomy, radiation, chemotherapy. Continue letorozole. Qualifiers: Breast location: unspecified site of breast Estrogen receptor status: unspecified Patient sex: female Laterality: left Qualified Code(s): C50.912 - Malignant neoplasm of unspecified site of left female breast (9) Hyperlipidemia Priority: Secondary Status: Chronic Comments: Lipid panel mildly abnormal with an LDL of 112. Continue statin. Recommend low -cholesterol diet as well. Qualifiers: Hyperlipidemia type: unspecified Qualified Code(s): E78.5 - Hyperlipidemia , unspecified (10) Morbid obesity with BMI of 40.0-44.9, adult Priority: Secondary Status: Chronic (11) DVT prophylaxis Priority: Primary Status: Acute Comments: Subcutaneous heparin while admitted - Discharge Medications Prescriptions: Nitroglycerin 0.4 mg SL Q5MIN PRN #30 PRN Reason: Chest Pain Furosemide [Lasix] 20 mg PO DAILY #30 tablet Home Medications: Albuterol Sulfate [Proair Respiclick] 2 inh IN Q4H PRN 06/20/15 [History] Aspirin Enteric Coated [Aspirin EC] 81 mg PO DAILY 06/20/15 [History] Insulin ASPART [NovoLOG] 1 unit SQ AD PRN 06/20/15 [History] LORazepam [Ativan] 1 mg PO HS PRN #30 tablet 11/03/16 [Rx] Albuterol Neb [Proventil Neb] 2.5 mg IH Q4HR PRN 12/31/16 [History] Atenolol [Tenormin] 25 mg PO DAILY 12/31/16 [History] Atorvastatin Calcium [Lipitor] 80 mg PO HS 12/31/16 [History] Budesonide/Formoterol 160/4.5 [Symbicort 160/4.5] 2 puff IH BIDR 12/31/16 [ History] Cholecalciferol (D-3) [Vitamin D] 5,000 unit PO DAILY 12/31/16 [History] Citalopram Hydrobromide [Celexa] 40 mg PO DAILY 12/31/16 [History] Folic Acid 0.8 mg PO BID 12/31/16 [History] Montelukast [Singulair] 10 mg PO HS 12/31/16 [History] Pregabalin [Lyrica] 150 mg PO BID 12/31/16 [History] Valsartan [Diovan] 40 mg PO DAILY 12/31/16 [History] Ondansetron HCl [Zofran] 4 mg PO BID PRN #60 tablet 04/13/17 [Rx] OxyCODONE Immed Rel [Roxicodone 5 MG] 5 mg PO Q8HR PRN #90 tablet 04/13/17 [Rx] Letrozole [Femara] 2.5 mg PO DAILY #30 tablet 06/03/17 [Rx] Dulaglutide [Trulicity] 1.5 mg SQ QWEEK 06/23/17 [History] Omeprazole [PriLOSEC] 40 mg PO DAILY 06/23/17 [History] Furosemide [Lasix] 20 mg PO DAILY #30 tablet 06/25/17 [Rx] Nitroglycerin 0.4 mg SL Q5MIN PRN #30 06/25/17 [Rx] Allergies/Adverse Reactions: 3 Allergy/AdvReac Type Severity Reaction Status Date / Time anastrozole Allergy Itching Verified 12/31/16 11:03 exemestane Allergy Rash Verified 12/31/16 11:03 linagliptin [From Tradjenta] Allergy Rash Verified 12/31/16 11:03 Procedures/tests Complete & Pending: Procedures Performed prior 72 hours Category Date Time Status NM estuardo perf SPECT multi [NM] Routine Exams 06/24/17 09:51 Taken SP pharm nuclear stress Routine Y 06/24/17 09:48 Completed Date of admission: 06/23/17 22:57 Primary care physician: PCP NONE Consults: 06/23/17 23:44 Consult to Cardiology [CONS] Routine Comment: Consulting Provider: [facility] Reason for Consult: New CHF exacerbation Call Completed: No Discharging clinician: Apryl Sevilla Anticipated date of discharge: 06/25/17 - Patient Status Disposition: Home, Self-Care Condition: Fair Functional capacity at discharge: independent ambulation Overall status at discharge: patient is progressing back to baseline - Discharge Instructions Follow Up With: Kathie Arreguin SALES REPRESENTATIVE JEWELRY [Advanced Practice Nurse] - 06/30/17 11:00 am [facility] [Provider Group] Additional Instructions: Follow-up with primary care provider as scheduled. Follow-up with cardiology within 1-2 weeks. Hold losartan for 2 days. - Diet and Activity Activity: increase activity as tolerated Diet: diabetic diet, low fat, low cholesterol (fluid restriction 2L per day), low salt diet Hospital course: Ms. Warren is a 62 year old female with past medical history of breast cancer status post lumpectomy, should give lung disease, diabetes, GERD, hyperlipidemia , hypertension, chronic kidney disease stage III, cholecystectomy, BiPAP at home at bedtime, morbid obesity. Patient presented to the emergency department with chief complaint of shortness of breath. Patient stating 2 weeks prior to presentation, she had worsening shortness of breath, night sweats associated with productive cough and she went to a primary care provider prescribed her azithromycin. At that time, her productive cough improved but did not resolve. Her shortness of breath continued and worsened. Patient stating she became short of breath while eating and while walking a minimum of 10 feet and was also short of breath with lying flat. She denied fevers, chills. Patient also endorses substernally located chest pressure which also started 2 weeks prior to presentation and did not radiate and was intermittent and associated with nausea and worsened with exertion and improved with rest. Patient stating she has baseline shortness of breath with exertion but states this had worsened prior to presentation. Patient denies syncopal episodes, palpitations. She does endorse drinking at least 3 L of water per day and endorses a high salt diet. Chest x-ray in the emergency department consistent with early congestive heart failure. Patient was admitted to the hospitalist service for further evaluation and management. Troponins were negative. Patient appeared fluid overloaded on examination she was diuresed with IV furosemide. Echocardiogram revealing preserved ejection fraction of 60-65% with moderate diastolic dysfunction, mild MR, moderate pulmonary hypertension. She also had a 2 day stress test that had a questionable area of ischemia versus artifact but was otherwise unremarkable. Cardiology was brought on board who proceeded with medical management and surmised this was a low risk finding and mostly consistent with artifact. Patient was admitted and diuresed over the course of 2 nights and on day of discharge, or pedal edema had resolved and her shortness of breath had improved greatly. She was diagnosed with new onset of diastolic heart failure. She was educated at length on a fluid restricted in sodium restricted diet. Patient stating she drinks 3 large cups of coffee in the morning and then drinks at least 3 L of water throughout the day. She was instructed on a 2 L fluid restricted diet. She also eats an entire bag of popcorn just prior to bed every night which is very high in sodium. She was educated at length and was receptive to the education. Regarding risk factor stratification, patient is already on aspirin, beta luis, statin. She was also given sublingual nitroglycerin as needed. While we are diuresing her shift , she had a mild acute kidney injury superimposed on her chronic kidney disease. Her furosemide doses was decreased on day of discharge. She was also instructed to hold her losartan for 2 days after discharge. She was discharged home in stable condition with close outpatient follow-up recommended with her primary care provider and with butter grader. ITS Impressions Chest X-Ray 06/23/17 14:37 IMPRESSION: Findings suggesting early CHF with borderline cardiac size and early perihilar edema . D/ / Varun Nick MD / Varun Nick MD Interpreting Provider: Varun Nick MD Echocardiogram Date of Study: 06/24/2017 Impressions: Normal LV systolic function, LVEF 60-65%. Moderate left ventricular diastolic dysfunction. Normal right ventricular size and function. Mild mitral regurgitation. Moderate pulmonary hypertension. Estimated RVSP = 51 mmHg. Regadenoson Nuclear 2 day Date of Study: 06/24/2017 Impression: There is a predominately fixed perfusion defect involving the anterior wall with mild worsening during stress. Findings likely represent breast attenuation artifact. However, mild reversible ischemia cannot be excluded. Pharmacologic ECG was negative for ischemia at the level of heart rate achieved. Gated EF = 62%. Cardiology service aware of findings. - Time Spent with Patient Total time spent providing and/or coordinating discharge services: Greater than 30 minutes (HF teaching at length) - Constitutional Vitals: Temp Pulse Resp BP Pulse Ox 98.2 F 57 18 116/60 93 06/25/17 11:41 06/25/17 11:41 06/25/17 11:41 06/25/17 11:41 06/25/17 11:41 General appearance: Present: A&O X 3, morbidly obese, pleasant, no acute distress, answers questions appropriately - Head Head exam: Present: atraumatic, normocephalic - Eye Eye exam: Present: PERRL, conjuntiva pink, sclera anicteric Pupils: Present: PERRL - Neck Neck exam general surgery: Present: supple, trachea midline. Absent: lymphadenopathy - Respiratory Respiratory exam: Present: decreased breath sounds. Absent: accessory muscle use, rales, respiratory distress, rhonchi, wheezes - Cardiovascular Cardiovascular exam: Present: RRR, +S1, +S2. Absent: diastolic murmur, gallop, rubs, systolic murmur - GI/Abdominal GI/Abdominal exam: Present: normal bowel sounds, soft, no peritoneal signs. Absent: distended, tenderness - Extremities Exam Extremities exam: Present: warm, radial pulses palpable and symmetrical. Absent : calf tenderness, cyanotic, pedal edema - Neurological Exam Neurological exam: Present: alert, CN II-XII intact, normal gait, oriented X3, no focal deficits, strengths equal and symetr throughout. Absent: pronater drift, facial droop, speech deficit - Skin Skin exam: Present: dry, intact, normal color, warm
== END 2017-06-25 14:56 | disposition home or self-care (01) | DRG 291 ==
LOC: 3BNU 14:11 → EMEROO 14:11 → 3BNU 20:00
PROVIDERS: ADMIT Nurse Practitioner Family; ATTEND Nurse Practitioner Family

== ENCOUNTER 2019-08-10 15:32 | Observation (INO) ==
[2019-08-10 16:37] LABS: Basophils % 0.6 %; Eosinophils # 0.1 K/mcL (0.0-0.6); Eosinophils % 1.9 %; Hematocrit 37.9 % (35.3-44.9); Hemoglobin 12.5 g/dL (11.5-15.4); Immature Granulocytes % 0.3 % (0-4); Lymphocytes # 1.4 K/mcL (0.6-4.6); Lymphocytes % 20.7 %; Mean Corpuscular Hemoglobin 30.4 pg (28.0-33.3); Mean Corpuscular Volume 92.2 fL (83.0-100.0); Mean Platelet Volume 9.6 fL (9.4-12.4); Monocytes # 0.6 K/mcL (0.0-1.3); Monocytes % 8.5 %; Neutrophils # 4.6 K/mcL (1.6-8.9); Platelet Count 259 K/mcL (140-400); Red Blood Count 4.11 M/mcL (3.82-4.97); Red Cell Distribution Width 13.5 % (11.5-14.5); White Blood Count 6.7 K/mcL (4.3-11.1)
[2019-08-10 16:45] LABS: Prothrombin Time 11.9 Seconds (9.4-12.1)
[2019-08-10 16:48] LABS: Activated Partial Thrombo Time 27.9 Seconds (26.0-36.0)
[2019-08-10 16:56] LABS: Albumin/Globulin Ratio 1.4 (1.1-2.2); Bilirubin,Direct 0.1 mg/dL (0.0-0.2); Bilirubin,Indirect 0.5 mg/dL (0.0-1.2); Bilirubin,Total 0.6 mg/dL (0.3-1.0); Globulin 2.8 g/dL (2.4-3.5); Total Protein 6.8 g/dL (6.4-8.9)
[2019-08-10 16:58] LABS: BUN/Creatinine Ratio 21 (6-26); Blood Urea Nitrogen 32 mg/dL (8-23); Calcium 8.9 mg/dL (8.6-10.3); Carbon Dioxide 23 mEq/L (23-29); Chloride 109 mEq/L (98-107); Glucose 146 mg/dL (70-105); Osmolality,Calculated 294 (280-300); Sodium 137 mEq/L (136-145); Troponin I < 0.03 ng/mL (< 0.04); eGFR For African Americans 41 (> 60); eGFR For Non-African Americans 34 (> 60)
[2019-08-10] MEDS ORDERED: Aspirin 325 MG TABLET PO ONE (17:55)
[2019-08-11] MEDS ORDERED: ALBUTEROL SULFATE IN PRN (01:11)
[2019-08-11] MEDS ORDERED: Dextrose Gel 15 GM/37.5 ML TUBE PO PRN ×2 (01:14)
[2019-08-11] MEDS ORDERED: *HR* Dextrose 50 % in Water (Syg) 50 ML SYRINGE IVP PRN (01:14)
[2019-08-11] MEDS ORDERED: D5% in Water 1,000 ML IVC PRN (01:14)
[2019-08-11] MEDS ORDERED: *HR* Promethazine 25 MG/ML VIAL IVP PRN (01:21)
[2019-08-11] MEDS ORDERED: Naloxone 0.4 MG/ML INJ IVP PRN (01:21)
[2019-08-11 01:51] LABS: Hematocrit 39.8 % (35.3-44.9); Mean Corpuscular HGB Conc 32.7 g/dL (31.6-35.5); Mean Corpuscular Hemoglobin 30.2 pg (28.0-33.3); Mean Corpuscular Volume 92.6 fL (83.0-100.0); Mean Platelet Volume 9.5 fL (9.4-12.4); Platelet Count 248 K/mcL (140-400); Red Cell Distribution Width 13.6 % (11.5-14.5); White Blood Count 5.4 K/mcL (4.3-11.1)
[2019-08-11 02:12] LABS: Calcium 8.9 mg/dL (8.6-10.3); Chol/HDL Ratio 4.9 (0-4.9); Magnesium 2.3 mg/dL (1.6-2.6); Potassium 4.2 mEq/L (3.5-5.1)
[2019-08-11 02:26] LABS: Thyroid Stimulating Hormone 2.062 mcIU/mL (0.340-5.600)
[2019-08-11] MEDS ORDERED: Albuterol 2.5 MG/3 ML NEBULIZER IH PRN (04:00)
[2019-08-11] MEDS: Insulin LISPRO 300 UNITS/3 ML VIAL SQ SCH ×5 (05:27→17:18)
[2019-08-11] MEDS: *HR* Heparin 5,000 UNIT/ML VIAL SQ SCH ×3 (05:33→21:13)
[2019-08-11] MEDS ORDERED: Regadenoson 0.4 MG/5 ML SYRINGE IVP ONE (06:22)
[2019-08-11] MEDS ORDERED: (Ezetimibe [Zetia] 10 MG) PO SCH (09:00)
[2019-08-11] MEDS ORDERED: (Cyclosporine [Restasis] 1 DROP) OP SCH (09:00)
[2019-08-11] MEDS ORDERED: LYSINE PO SCH (09:00)
[2019-08-11] MEDS ORDERED: LUTEIN PO SCH (09:00)
[2019-08-11] MEDS ORDERED: Perflutren Lipid Microsphere 1.3 ML in 0.9 % Sodium Chloride 8.7 ML IVP ONE (09:22)
[2019-08-11] MEDS: Folic Acid 1 MG TABLET PO SCH ×2 (10:44→21:08)
[2019-08-11] MEDS: Letrozole 2.5 MG TABLET PO SCH (10:44)
[2019-08-11] MEDS: Aspirin Enteric Coated 81 MG Tablet PO SCH (10:45)
[2019-08-11 10:54] LABS: Estimated Average Glucose 214 mg/dl
[2019-08-11] MEDS: Budesonide/Formoterol 160/4.5 1 PUFF INH IH SCH ×2 (11:24→20:08)
[2019-08-11] MEDS ORDERED: Methocarbamol 750 MG TABLET PO PRN (12:16)
[2019-08-11] MEDS ORDERED: Insulin LISPRO 300 UNITS/3 ML VIAL SQ SCH (21:00)
[2019-08-11] MEDS ORDERED: Famotidine 20 MG TABLET PO SCH (21:00)
[2019-08-12 04:00] LABS: Hematocrit 38.4 % (35.3-44.9); Hemoglobin 12.6 g/dL (11.5-15.4); Mean Corpuscular HGB Conc 32.8 g/dL (31.6-35.5); Mean Corpuscular Hemoglobin 30.2 pg (28.0-33.3); Mean Corpuscular Volume 92.1 fL (83.0-100.0); Mean Platelet Volume 9.8 fL (9.4-12.4); Platelet Count 224 K/mcL (140-400); Red Blood Count 4.17 M/mcL (3.82-4.97); Red Cell Distribution Width 13.5 % (11.5-14.5); White Blood Count 5.1 K/mcL (4.3-11.1)
[2019-08-12] MEDS: *HR* Heparin 5,000 UNIT/ML VIAL SQ SCH ×2 (04:13→14:33)
[2019-08-12 04:18] LABS: Calcium 9.4 mg/dL (8.6-10.3); Potassium 4.5 mEq/L (3.5-5.1)
[2019-08-12] MEDS: Nitroglycerin 0.4 MG TAB.SUBL SL PRN ×2 (09:00→09:05)
[2019-08-12] MEDS: Aspirin Enteric Coated 81 MG Tablet PO SCH (09:04)
[2019-08-12] MEDS: Folic Acid 1 MG TABLET PO SCH (09:04)
[2019-08-12] MEDS: Letrozole 2.5 MG TABLET PO SCH (09:04)
[2019-08-12] MEDS: Insulin LISPRO 300 UNITS/3 ML VIAL SQ SCH ×2 (09:05→14:33)
[2019-08-12] MEDS ORDERED: 0.9 % Sodium Chloride 500 ML IVC SCH (10:00)
[2019-08-12] MEDS: Budesonide/Formoterol 160/4.5 1 PUFF INH IH SCH (10:17)
[2019-08-12 11:56] VITALS: BP 147/98
[2019-08-13] MEDS ORDERED: Isosorbide MONOnitrate (24 HR) 30 MG TAB.ER.24H PO SCH (09:00)
== END 2019-08-12 17:36 | disposition home or self-care (01) ==
LOC: 3BNU 15:32 → EMEROOARM 15:32 → 3BNU 20:40
PROVIDERS: ADMIT Internal Medicine; ATTEND Internal Medicine

== ENCOUNTER 2020-02-06 10:57 | Inpatient (IN) ==
[2020-02-06] MEDS ORDERED: Naloxone 0.4 MG/ML INJ IVP PRN (12:22)
[2020-02-06] MEDS ORDERED: Dextrose Gel 15 GM/37.5 ML TUBE PO PRN ×2 (12:24)
[2020-02-06] MEDS ORDERED: *HR* Dextrose 50 % in Water (Syg) 50 ML SYRINGE IVP PRN (12:24)
[2020-02-06] MEDS ORDERED: D5% in Water 1,000 ML IVC PRN (12:24)
[2020-02-06] MEDS ORDERED: Nitroglycerin 0.4 MG TAB.SUBL SL PRN (12:25)
[2020-02-06] MEDS ORDERED: *HR* OxyCODONE Immed Rel 5 MG TABLET PO PRN (12:25)
[2020-02-06] MEDS: *HR* OxyCODONE Immed Rel 5 MG TABLET PO PRN ×3 (13:28→21:55)
[2020-02-06 13:35] LABS: Basophils % 0.4 %; Eosinophils # 0.1 K/mcL (0.0-0.6); Eosinophils % 0.6 %; Hematocrit 35.3 % (35.3-44.9); Hemoglobin 11.8 g/dL (11.5-15.4); Immature Granulocytes % 0.4 % (0-4); Lymphocytes # 1.2 K/mcL (0.6-4.6); Lymphocytes % 14.5 %; Mean Corpuscular HGB Conc 33.4 g/dL (31.6-35.5); Mean Corpuscular Hemoglobin 30.3 pg (28.0-33.3); Mean Corpuscular Volume 90.7 fL (83.0-100.0); Mean Platelet Volume 9.7 fL (9.4-12.4); Monocytes # 0.8 K/mcL (0.0-1.3); Monocytes % 9.2 %; Neutrophils # 6.1 K/mcL (1.6-8.9); Platelet Count 258 K/mcL (140-400); Red Blood Count 3.89 M/mcL (3.82-4.97); Red Cell Distribution Width 13.1 % (11.5-14.5); Segmented Neutrophils % 74.9 %; White Blood Count 8.1 K/mcL (4.3-11.1)
[2020-02-06 13:55] LABS: Alanine Aminotransferase 11 Units/L (7-52); Albumin 4.1 g/dL (3.5-5.7); Albumin/Globulin Ratio 1.4 (1.1-2.2); Alkaline Phosphatase 88 Units/L (34-104); Aspartate Amino Transferase 12 Units/L (13-39); BUN/Creatinine Ratio 21 (6-26); Blood Urea Nitrogen 32 mg/dL (8-23); Calcium 9.4 mg/dL (8.6-10.3); Carbon Dioxide 24 mEq/L (23-29); Chloride 101 mEq/L (98-107); Globulin 2.9 g/dL (2.4-3.5); Glucose 221 mg/dL (70-105); Osmolality,Calculated 292 (280-300); Potassium 4.1 mEq/L (3.5-5.1); Sodium 134 mEq/L (136-145); eGFR For African Americans 43 (> 60); eGFR For Non-African Americans 35 (> 60)
[2020-02-06 15:21] LABS: Troponin I < 0.03 ng/mL (< 0.04)
[2020-02-06] MEDS: Insulin LISPRO 300 UNITS/3 ML VIAL SQ SCH (17:45)
[2020-02-06] MEDS ORDERED: Denosumab 60 MG/ML SYRINGE SQ SCH (19:00)
[2020-02-06] MEDS: Budesonide/Formoterol 160/4.5 1 PUFF INH IH SCH (20:38)
[2020-02-06] MEDS: Folic Acid 1 MG TABLET PO SCH (21:55)
[2020-02-06] MEDS: *HR* Heparin 5,000 UNIT/ML VIAL SQ SCH (21:58)
[2020-02-07] MEDS: *HR* OxyCODONE Immed Rel 5 MG TABLET PO PRN ×4 (02:00→22:08)
[2020-02-07] MEDS: *HR* Heparin 5,000 UNIT/ML VIAL SQ SCH (02:51)
[2020-02-07] MEDS: Insulin LISPRO 300 UNITS/3 ML VIAL SQ SCH ×2 (08:03→16:30)
[2020-02-07] MEDS ORDERED: *HR* Propofol 200 MG/20 ML VIAL IVP ONE (08:06)
[2020-02-07] MEDS ORDERED: *HR* Midazolam HCl 2 MG/2 ML VIAL ONE (08:06)
[2020-02-07] MEDS ORDERED: *HR* FentaNYL (PF) 100 MCG/2 ML VIAL ONE (08:06)
[2020-02-07] MEDS ORDERED: Lidocaine -MPF 2% 2 ML VIAL ONE (08:09)
[2020-02-07] MEDS ORDERED: *HR* Rocuronium Bromide 50 MG/5 ML VIAL ONE (08:09)
[2020-02-07] MEDS ORDERED: *HR* Succinylcholine 200 MG/10 ML VIAL IVP ONE (08:09)
[2020-02-07] MEDS: Folic Acid 1 MG TABLET PO SCH ×2 (08:37→21:13)
[2020-02-07] MEDS ORDERED: CeFAZolin Syr 2,000MG/20 ML 2,000 MG/20 ML SYRINGE IVPB ONE (08:42)
[2020-02-07] MEDS ORDERED: Ethanol\\Acetic Acid\\Na Ace\\Ben 1,000 ML IRRIG.SOLN IR ONE (08:53)
[2020-02-07] MEDS ORDERED: *HR* HYDROmorphone PF 0.5 MG/0.5 ML SYRINGE IVP PRN (08:53)
[2020-02-07] MEDS ORDERED: Ondansetron 4 MG/2 ML VIAL IVP ONE (08:53)
[2020-02-07] MEDS ORDERED: *HR* OxyCODONE Immed Rel 5 MG TABLET PO PRN (08:53)
[2020-02-07] MEDS ORDERED: *HR* Promethazine 25 MG/ML VIAL IVP PRN (08:53)
[2020-02-07] MEDS ORDERED: atenoloL 25 MG TABLET PO SCH (09:00)
[2020-02-07] MEDS ORDERED: NON-FORMULARY MEDICATION 1 EACH EACH (Ubidecarenone/Vit E Acetate [Co Q-10 100 Mg Softgel] PO SCH (09:00)
[2020-02-07] MEDS ORDERED: Isosorbide MONOnitrate (24 HR) 30 MG TAB.ER.24H PO SCH (09:00)
[2020-02-07] MEDS ORDERED: Cholecalciferol (D-3) 1,000 UNIT (25MCG) TABLET PO SCH (09:00)
[2020-02-07] MEDS ORDERED: Aspirin Enteric Coated 81 MG Tablet PO SCH (09:00)
[2020-02-07] MEDS ORDERED: TIOTROPIUM BROMIDE 2.5 MCG IH SCH (09:00)
[2020-02-07] MEDS ORDERED: BuPROPion XL (24 HR) 150 MG TABLET PO SCH (09:00)
[2020-02-07] MEDS ORDERED: Letrozole 2.5 MG TABLET PO SCH (09:00)
[2020-02-07] MEDS ORDERED: Furosemide 20 MG TABLET PO SCH (09:00)
[2020-02-07] MEDS ORDERED: EPHEDrine 50 MG/ML VIAL ONE (09:31)
[2020-02-07] MEDS ORDERED: Dexamethasone 4 MG/ML VIAL ONE (09:36)
[2020-02-07] MEDS ORDERED: Ondansetron 4 MG/2 ML VIAL ONE (09:36)
[2020-02-07] MEDS ORDERED: Tiotropium 18 MCG inhalation IH SCH (10:00)
[2020-02-07 10:54] LABS: Hematocrit 33.6 % (35.3-44.9); Hemoglobin 10.8 g/dL (11.5-15.4)
[2020-02-07] MEDS: Budesonide/Formoterol 160/4.5 1 PUFF INH IH SCH ×2 (11:24→20:15)
[2020-02-07] MEDS ORDERED: D5% in Water 1,000 ML IVC PRN (11:52)
[2020-02-07] MEDS ORDERED: Sennosides 8.6 MG TABLET PO PRN (11:52)
[2020-02-07] MEDS ORDERED: *HR* OxyCODONE/APAP 5/325 TABLET PO PRN (11:52)
[2020-02-07] MEDS ORDERED: Naloxone 0.4 MG/ML INJ IVP PRN (11:52)
[2020-02-07] MEDS ORDERED: Ondansetron 4 MG/2 ML VIAL IVP PRN (11:52)
[2020-02-07] MEDS ORDERED: Dextrose Gel 15 GM/37.5 ML TUBE PO PRN ×2 (11:52)
[2020-02-07] MEDS ORDERED: Nitroglycerin 0.4 MG TAB.SUBL SL PRN (11:52)
[2020-02-07] MEDS ORDERED: *HR* Dextrose 50 % in Water (Syg) 50 ML SYRINGE IVP PRN (11:52)
[2020-02-07] MEDS ORDERED: MOM Conc 10 ML UD.LIQ PO PRN (11:52)
[2020-02-07] MEDS ORDERED: Gabapentin 300 MG CAPSULE PO ONE (12:43)
[2020-02-07] MEDS: HYDROcodone BIT/Homatropine 5 MG TABLET PO PRN (13:19)
[2020-02-07] MEDS: ceFAZolin 2,000 MG in 0.9 % Sodium Chloride 100 ML IVPB SCH ×2 (16:20→23:14)
[2020-02-07] MEDS ORDERED: (Ezetimibe [Zetia] 10 MG) PO SCH (18:00)
[2020-02-07] MEDS ORDERED: Insulin LISPRO 300 UNITS/3 ML VIAL SQ SCH (21:00)
[2020-02-07] MEDS: Ringers Solution, Lactated 1,000 ML IVC SCH ×2 (21:14→23:17)
[2020-02-08] MEDS: *HR* OxyCODONE Immed Rel 5 MG TABLET PO PRN ×3 (02:29→12:14)
[2020-02-08 02:54] LABS: Hemoglobin 10.4 g/dL (11.5-15.4)
[2020-02-08 03:13] LABS: Potassium 4.3 mEq/L (3.5-5.1)
[2020-02-08] MEDS: Insulin LISPRO 300 UNITS/3 ML VIAL SQ SCH ×2 (07:58→12:04)
[2020-02-08] MEDS: Folic Acid 1 MG TABLET PO SCH (08:05)
[2020-02-08] MEDS: HYDROcodone BIT/Homatropine 5 MG TABLET PO PRN ×2 (08:41→14:25)
[2020-02-08] MEDS ORDERED: *HR* Enoxaparin 30 MG/0.3 ML SYRINGE SQ SCH ×2 (08:54→18:00)
[2020-02-08] MEDS ORDERED: Isosorbide MONOnitrate (24 HR) 30 MG TAB.ER.24H PO SCH (09:00)
[2020-02-08] MEDS ORDERED: Furosemide 20 MG TABLET PO SCH (09:00)
[2020-02-08] MEDS ORDERED: Cholecalciferol (D-3) 1,000 UNIT (25MCG) TABLET PO SCH (09:00)
[2020-02-08] MEDS ORDERED: Aspirin Enteric Coated 81 MG Tablet PO SCH (09:00)
[2020-02-08] MEDS ORDERED: BuPROPion XL (24 HR) 150 MG TABLET PO SCH (09:00)
[2020-02-08] MEDS ORDERED: atenoloL 25 MG TABLET PO SCH (09:00)
[2020-02-08] MEDS ORDERED: Letrozole 2.5 MG TABLET PO SCH (09:00)
[2020-02-08] MEDS ORDERED: Tiotropium 18 MCG inhalation IH SCH (10:00)
[2020-02-08] MEDS: Budesonide/Formoterol 160/4.5 1 PUFF INH IH SCH (10:55)
[2020-02-08 11:46] VITALS: BP 101/56
== END 2020-02-08 16:52 | disposition home health service (06) | DRG 483 ==
LOC: 3NENU → SUATTDRO 12:56
PROVIDERS: ADMIT Internal Medicine; ATTEND Student in an Organized Health Care Education/Training Program

== ENCOUNTER 2021-04-18 13:52 | Observation (INO) ==
[2021-04-18] MEDS ORDERED: Isovue-370 500 ML BOTTLE IVP ONE (14:09)
[2021-04-18] MEDS ORDERED: 0.9 % Sodium Chloride 500 ML IVC ONE ×2 (14:09→15:20)
[2021-04-18] MEDS ORDERED: Ondansetron 4 MG/2 ML VIAL IVP ONE (14:09)
[2021-04-18] MEDS ORDERED: *HR* FentaNYL (PF) 100 MCG/2 ML VIAL IVP ONE ×2 (14:09→14:47)
[2021-04-18 14:47] LABS: Basophils % 0.4 %; Eosinophils # 0.1 K/mcL (0.0-0.6); Hematocrit 36.9 % (35.3-44.9); Immature Granulocytes % 0.4 % (0-4); Lymphocytes # 1.2 K/mcL (0.6-4.6); Lymphocytes % 11.6 %; Mean Corpuscular HGB Conc 32.5 g/dL (31.6-35.5); Mean Corpuscular Hemoglobin 30.2 pg (28.0-33.3); Mean Corpuscular Volume 92.7 fL (83.0-100.0); Mean Platelet Volume 9.6 fL (9.4-12.4); Monocytes # 0.8 K/mcL (0.0-1.3); Monocytes % 7.6 %; Neutrophils # 8.1 K/mcL (1.6-8.9); Platelet Count 218 K/mcL (140-400); Red Blood Count 3.98 M/mcL (3.82-4.97); Red Cell Distribution Width 13.3 % (11.5-14.5); White Blood Count 10.3 K/mcL (4.3-11.1)
[2021-04-18 15:07] LABS: Albumin/Globulin Ratio 1.4 (1.1-2.2); Bilirubin,Indirect 0.5 mg/dL (0.0-1.0); Bilirubin,Total 0.5 mg/dL (0.3-1.0); Calcium 8.9 mg/dL (8.6-10.3); Globulin 2.9 g/dL (2.4-3.5); Potassium 3.9 mEq/L (3.5-5.1); Total Protein 6.9 g/dL (6.4-8.9)
[2021-04-18] MEDS ORDERED: *HR* HYDROmorphone (PF) 1 MG/ML SYRINGE IVP ONE (16:31)
[2021-04-18] MEDS ORDERED: Piperacillin/Tazobactam 3.375 GM in Water for inj. (sterile) 20 ML IVP ONE (16:36)
[2021-04-18] MEDS ORDERED: Water for inj. (sterile) 20 ML ONE (17:03)
[2021-04-18] MEDS ORDERED: Dextrose Gel 15 GM/37.5 ML TUBE PO PRN ×4 (17:06→21:54)
[2021-04-18] MEDS ORDERED: Acetaminophen 325 MG TABLET PO PRN ×2 (17:06→21:54)
[2021-04-18] MEDS ORDERED: *HR* Dextrose 50 % in Water (Vial) 50 ML VIAL IVP PRN ×2 (17:06→21:54)
[2021-04-18] MEDS ORDERED: D5% in Water 1,000 ML IVC PRN ×2 (17:06→21:54)
[2021-04-18] MEDS ORDERED: Ondansetron 4 MG/2 ML VIAL IVP PRN ×2 (17:06→21:54)
[2021-04-18] MEDS ORDERED: Naloxone 0.4 MG/ML INJ IVP PRN ×2 (17:06→21:54)
[2021-04-18] MEDS ORDERED: *HR* HYDROmorphone (PF) 1 MG/ML SYRINGE IVP PRN ×2 (17:09→21:54)
[2021-04-18] MEDS ORDERED: 0.9 % Sodium Chloride 1,000 ML IVC SCH ×2 (17:15→21:54)
[2021-04-18] MEDS ORDERED: Insulin LISPRO 300 UNITS/3 ML VIAL SUBQ SCH (18:00)
[2021-04-18] MEDS ORDERED: *HR* Heparin 5,000 UNIT/ML VIAL SQ SCH (18:00)
[2021-04-18] MEDS ORDERED: Promethazine 6.25 MG in Water for inj. (sterile) 20 ML IVPB PRN ×2 (19:32→21:54)
[2021-04-18] MEDS ORDERED: Ondansetron 4 MG/2 ML VIAL ONE (19:38)
[2021-04-18] MEDS ORDERED: *HR* Succinylcholine 200 MG/10 ML VIAL IVP ONE (19:38)
[2021-04-18] MEDS ORDERED: Lidocaine -MPF 4% 5 ML AMPUL ONE (19:38)
[2021-04-18] MEDS ORDERED: *HR* Rocuronium Bromide 50 MG/5 ML VIAL ONE (19:38)
[2021-04-18] MEDS ORDERED: Lidocaine -MPF 2% 2 ML VIAL ONE (19:38)
[2021-04-18] MEDS ORDERED: *HR* Propofol 200 MG/20 ML VIAL IVP ONE (19:39)
[2021-04-18] MEDS ORDERED: *HR* FentaNYL (PF) 100 MCG/2 ML VIAL ONE (19:40)
[2021-04-18] MEDS ORDERED: Ketorolac 30 MG/ML VIAL ONE (19:41)
[2021-04-18] MEDS ORDERED: Sugammadex Sodium 200 MG/2 ML VIAL IV ONE (19:41)
[2021-04-18] MEDS: *HR* HYDROmorphone PF 0.5 MG/0.5 ML SYRINGE IVP PRN ×2 (21:18→21:30)
[2021-04-18] MEDS: Piperacillin/Tazobactam 3.375 GM in 0.9 % Sodium Chloride Mini Bag 100 ML IVPB SCH (23:07)
[2021-04-19] MEDS ORDERED: Piperacillin/Tazobactam 3.375 GM in 0.9 % Sodium Chloride Mini Bag 100 ML IVPB SCH
[2021-04-19 01:13] LABS: Basophils % 0.2 %; Eosinophils % 0.1 %; Hematocrit 39.6 % (35.3-44.9); Hemoglobin 13.1 g/dL (11.5-15.4); Immature Granulocytes % 0.5 % (0-4); Lymphocytes # 0.9 K/mcL (0.6-4.6); Lymphocytes % 7.1 %; Mean Corpuscular HGB Conc 33.1 g/dL (31.6-35.5); Mean Corpuscular Hemoglobin 31.1 pg (28.0-33.3); Mean Corpuscular Volume 94.1 fL (83.0-100.0); Mean Platelet Volume 9.8 fL (9.4-12.4); Monocytes # 0.3 K/mcL (0.0-1.3); Neutrophils # 11.1 K/mcL (1.6-8.9); Platelet Count 215 K/mcL (140-400); Red Blood Count 4.21 M/mcL (3.82-4.97); Red Cell Distribution Width 13.3 % (11.5-14.5); Segmented Neutrophils % 90.1 %; White Blood Count 12.3 K/mcL (4.3-11.1)
[2021-04-19 01:35] LABS: Calcium 8.6 mg/dL (8.6-10.3); Potassium 4.7 mEq/L (3.5-5.1)
[2021-04-19] MEDS ORDERED: *HR* Heparin 5,000 UNIT/ML VIAL SQ SCH (06:00)
[2021-04-19] MEDS ORDERED: Nitroglycerin 0.4 MG TAB.SUBL SL PRN (07:41)
[2021-04-19] MEDS ORDERED: Albuterol 2.5 MG/3 ML NEBULIZER IH PRN (07:41)
[2021-04-19] MEDS ORDERED: Dextrose Gel 15 GM/37.5 ML TUBE PO PRN ×2 (07:43)
[2021-04-19] MEDS ORDERED: D5% in Water 1,000 ML IVC PRN (07:43)
[2021-04-19] MEDS ORDERED: *HR* Dextrose 50 % in Water (Vial) 50 ML VIAL IVP PRN (07:43)
[2021-04-19 08:14] LABS: Basophils % 0.1 %; Hemoglobin 12.5 g/dL (11.5-15.4); Immature Granulocytes % 0.3 % (0-4); Lymphocytes # 0.7 K/mcL (0.6-4.6); Lymphocytes % 6.7 %; Mean Corpuscular HGB Conc 32.1 g/dL (31.6-35.5); Mean Corpuscular Hemoglobin 30.3 pg (28.0-33.3); Mean Corpuscular Volume 94.4 fL (83.0-100.0); Mean Platelet Volume 9.6 fL (9.4-12.4); Monocytes # 0.5 K/mcL (0.0-1.3); Monocytes % 4.6 %; Neutrophils # 9.1 K/mcL (1.6-8.9); Platelet Count 210 K/mcL (140-400); Red Blood Count 4.13 M/mcL (3.82-4.97); Red Cell Distribution Width 13.4 % (11.5-14.5); Segmented Neutrophils % 88.3 %; White Blood Count 10.3 K/mcL (4.3-11.1)
[2021-04-19] MEDS ORDERED: Insulin LISPRO 300 UNITS/3 ML VIAL SUBQ ONE (08:54)
[2021-04-19] MEDS ORDERED: Aspirin Enteric Coated 81 MG Tablet PO SCH (09:00)
[2021-04-19] MEDS ORDERED: Furosemide 20 MG TABLET PO SCH (09:00)
[2021-04-19] MEDS ORDERED: BuPROPion XL (24 HR) 150 MG TABLET PO SCH (09:00)
[2021-04-19] MEDS ORDERED: Tiotropium 10 INH DOSE IH SCH (09:00)
[2021-04-19] MEDS ORDERED: Folic Acid 1 MG TABLET PO SCH (09:00)
[2021-04-19] MEDS ORDERED: atenoloL 25 MG TABLET PO SCH (09:00)
[2021-04-19] MEDS ORDERED: Isosorbide MONOnitrate (24 HR) 30 MG TAB.ER.24H PO SCH (09:00)
[2021-04-19] MEDS ORDERED: Budesonide/Formoterol 160/4.5 1 PUFF INH IH SCH (10:00)
[2021-04-19] MEDS: Piperacillin/Tazobactam 3.375 GM in 0.9 % Sodium Chloride Mini Bag 100 ML IVPB SCH (10:12)
[2021-04-19] MEDS ORDERED: Insulin LISPRO 300 UNITS/3 ML VIAL SUBQ SCH (11:30)
[2021-04-19 11:56] VITALS: BP 147/74
== END 2021-04-19 13:23 | disposition home or self-care (01) ==
LOC: EMEROOARM 13:52 → 3ANU 13:52
PROVIDERS: ADMIT Internal Medicine; ATTEND Internal Medicine

== ENCOUNTER 2021-04-22 15:44 | Observation (INO) ==
[2021-04-22] MEDS ORDERED: *HR* HYDROmorphone (PF) 1 MG/ML SYRINGE IVP ONE ×2 (18:02→20:32)
[2021-04-22] MEDS ORDERED: 0.9 % Sodium Chloride 1,000 ML IVC ONE (18:02)
[2021-04-22] MEDS ORDERED: Ondansetron 4 MG/2 ML VIAL IVP ONE (18:02)
[2021-04-22 18:42] LABS: Bilirubin,Urine Negative (Negative); Blood,Urine Negative (Negative); Clarity,Urine Clear (Clear); Color,Urine Light-Yellow (Yellow); Glucose,Urine (UA) Normal (Normal); Ketones,Urine Negative (Negative); Leukocyte Esterase,Urine Negative (Negative); Nitrite,Urine Negative (Negative); Protein,Urine Negative (Neg-Trace); Urobilinogen,Urine Normal (Normal)
[2021-04-22 19:34] LABS: Basophils % 0.3 %; Eosinophils # 0.2 K/mcL (0.0-0.6); Eosinophils % 1.6 %; Hematocrit 33.3 % (35.3-44.9); Hemoglobin 10.9 g/dL (11.5-15.4); Immature Granulocytes % 0.4 % (0-4); Lymphocytes % 9.9 %; Mean Corpuscular HGB Conc 32.7 g/dL (31.6-35.5); Mean Corpuscular Volume 91.7 fL (83.0-100.0); Mean Platelet Volume 9.9 fL (9.4-12.4); Monocytes # 0.8 K/mcL (0.0-1.3); Monocytes % 8.4 %; Neutrophils # 7.6 K/mcL (1.6-8.9); Platelet Count 280 K/mcL (140-400); Red Blood Count 3.63 M/mcL (3.82-4.97); Red Cell Distribution Width 13.2 % (11.5-14.5); Segmented Neutrophils % 79.4 %; White Blood Count 9.6 K/mcL (4.3-11.1)
[2021-04-22 19:50] LABS: Albumin 3.7 g/dL (3.5-5.7); Albumin/Globulin Ratio 1.1 (1.1-2.2); Bilirubin,Total 0.8 mg/dL (0.3-1.0); Globulin 3.3 g/dL (2.4-3.5)
[2021-04-22] MEDS ORDERED: Piperacillin/Tazobactam 3.375 GM in 0.9 % Sodium Chloride Mini Bag 100 ML IVPB ONE (20:40)
[2021-04-22] MEDS ORDERED: Naloxone 0.4 MG/ML INJ IVP PRN (21:55)
[2021-04-22] MEDS ORDERED: Ondansetron 4 MG/2 ML VIAL IVP PRN (21:55)
[2021-04-22] MEDS: 0.9 % Sodium Chloride 1,000 ML IVC SCH (23:49)
[2021-04-23] MEDS: *HR* HYDROmorphone (PF) 1 MG/ML SYRINGE IVP PRN ×4 (01:14→17:49)
[2021-04-23] MEDS ORDERED: *HR* Dextrose 50 % in Water (Vial) 50 ML VIAL IVP PRN (03:27)
[2021-04-23] MEDS ORDERED: D5% in Water 1,000 ML IVC PRN (03:27)
[2021-04-23] MEDS ORDERED: Dextrose Gel 15 GM/37.5 ML TUBE PO PRN ×2 (03:27)
[2021-04-23 04:54] LABS: Basophils # 0.1 K/mcL (0.0-0.2); Basophils % 0.6 %; Eosinophils # 0.2 K/mcL (0.0-0.6); Eosinophils % 2.7 %; Hematocrit 33.6 % (35.3-44.9); Hemoglobin 10.7 g/dL (11.5-15.4); Immature Granulocytes % 0.3 % (0-4); Lymphocytes % 12.3 %; Mean Corpuscular HGB Conc 31.8 g/dL (31.6-35.5); Mean Corpuscular Hemoglobin 30.1 pg (28.0-33.3); Mean Corpuscular Volume 94.6 fL (83.0-100.0); Mean Platelet Volume 9.9 fL (9.4-12.4); Monocytes # 0.8 K/mcL (0.0-1.3); Monocytes % 9.6 %; Neutrophils # 5.8 K/mcL (1.6-8.9); Platelet Count 239 K/mcL (140-400); Red Blood Count 3.55 M/mcL (3.82-4.97); Red Cell Distribution Width 13.3 % (11.5-14.5); Segmented Neutrophils % 74.5 %; White Blood Count 7.8 K/mcL (4.3-11.1)
[2021-04-23 05:02] LABS: INR 1.2; Prothrombin Time 13.9 Seconds (9.4-12.1)
[2021-04-23 05:08] LABS: Calcium 8.1 mg/dL (8.6-10.3); Magnesium 2.2 mg/dL (1.6-2.6); Potassium 4.3 mEq/L (3.5-5.1)
[2021-04-23] MEDS: Piperacillin/Tazobactam 3.375 GM in 0.9 % Sodium Chloride Mini Bag 100 ML IVPB SCH ×3 (06:25→23:03)
[2021-04-23] MEDS: Insulin LISPRO 300 UNITS/3 ML VIAL SUBQ SCH ×3 (08:56→17:46)
[2021-04-23] MEDS: 0.9 % Sodium Chloride 1,000 ML IVC SCH (08:56)
[2021-04-23] MEDS ORDERED: Albuterol 2.5 MG/3 ML NEBULIZER IH PRN (12:58)
[2021-04-23] MEDS: BuPROPion XL (24 HR) 150 MG TABLET PO SCH (14:29)
[2021-04-23] MEDS: Micafungin 100 MG in 0.9 % Sodium Chloride Mini Bag 100 ML IVPB SCH (17:41)
[2021-04-23] MEDS: cilostazoL 100 MG TABLET PO SCH (20:39)
[2021-04-23] MEDS: Folic Acid 1 MG TABLET PO SCH (20:39)
[2021-04-23] MEDS ORDERED: Insulin LISPRO 300 UNITS/3 ML VIAL SUBQ SCH (21:00)
[2021-04-23] MEDS ORDERED: Vancomycin 1,500 MG/265 ML IV.SOLN IVPB SCH (21:00)
[2021-04-23] MEDS: Budesonide/Formoterol 160/4.5 1 PUFF INH IH SCH (22:15)
[2021-04-24] MEDS: Piperacillin/Tazobactam 3.375 GM in 0.9 % Sodium Chloride Mini Bag 100 ML IVPB SCH ×2 (05:20→14:50)
[2021-04-24 05:38] LABS: Basophils % 0.3 %; Eosinophils # 0.1 K/mcL (0.0-0.6); Eosinophils % 0.8 %; Hematocrit 29.6 % (35.3-44.9); Hemoglobin 9.4 g/dL (11.5-15.4); Immature Granulocytes % 0.4 % (0-4); Lymphocytes # 0.8 K/mcL (0.6-4.6); Lymphocytes % 8.1 %; Mean Corpuscular HGB Conc 31.8 g/dL (31.6-35.5); Mean Corpuscular Hemoglobin 30.1 pg (28.0-33.3); Mean Corpuscular Volume 94.9 fL (83.0-100.0); Mean Platelet Volume 9.9 fL (9.4-12.4); Monocytes # 0.9 K/mcL (0.0-1.3); Monocytes % 8.6 %; Neutrophils # 8.1 K/mcL (1.6-8.9); Platelet Count 241 K/mcL (140-400); Red Blood Count 3.12 M/mcL (3.82-4.97); Red Cell Distribution Width 13.6 % (11.5-14.5); Segmented Neutrophils % 81.8 %; White Blood Count 9.9 K/mcL (4.3-11.1)
[2021-04-24 05:58] LABS: Calcium 8.5 mg/dL (8.6-10.3); Magnesium 2.2 mg/dL (1.6-2.6); Phosphorous 3.3 mg/dL (2.7-4.5)
[2021-04-24] MEDS: Budesonide/Formoterol 160/4.5 1 PUFF INH IH SCH (07:54)
[2021-04-24] MEDS: Micafungin 100 MG in 0.9 % Sodium Chloride Mini Bag 100 ML IVPB SCH (08:30)
[2021-04-24] MEDS: BuPROPion XL (24 HR) 150 MG TABLET PO SCH (08:32)
[2021-04-24] MEDS: cilostazoL 100 MG TABLET PO SCH (08:32)
[2021-04-24] MEDS: Folic Acid 1 MG TABLET PO SCH (08:33)
[2021-04-24] MEDS: Insulin LISPRO 300 UNITS/3 ML VIAL SUBQ SCH ×2 (08:33→12:19)
[2021-04-24] MEDS: *HR* HYDROmorphone (PF) 1 MG/ML SYRINGE IVP PRN (08:44)
[2021-04-24] MEDS ORDERED: Tiotropium 10 INH DOSE IH SCH (09:00)
[2021-04-24] MEDS ORDERED: Furosemide 20 MG TABLET PO SCH (09:00)
[2021-04-24] MEDS ORDERED: atenoloL 25 MG TABLET PO SCH (09:00)
[2021-04-24] MEDS ORDERED: Isosorbide MONOnitrate (24 HR) 30 MG TAB.ER.24H PO SCH (09:00)
[2021-04-24] MEDS ORDERED: Aspirin Enteric Coated 81 MG Tablet PO SCH (09:00)
[2021-04-24 11:14] VITALS: BP 138/56
== END 2021-04-24 16:12 | disposition home or self-care (01) ==
LOC: 3BNU 15:44 → EMEROOARM 15:44 → SUATTDRO 21:36 → 3BNU 22:28
PROVIDERS: ADMIT Student in an Organized Health Care Education/Training Program; ATTEND Internal Medicine
PROC: IRDRAIN (2021-04-23 10:30)

== ENCOUNTER 2021-12-24 18:31 | Observation (INO) ==
[2021-12-24 20:19] LABS: Basophils % 0.7 %; Eosinophils # 0.2 K/mcL (0.0-0.6); Eosinophils % 3.4 %; Hematocrit 39.9 % (35.3-44.9); Hemoglobin 13.4 g/dL (11.5-15.4); Immature Granulocytes % 0.3 % (0-4); Lymphocytes # 1.5 K/mcL (0.6-4.6); Lymphocytes % 25.1 %; Mean Corpuscular HGB Conc 33.6 g/dL (31.6-35.5); Mean Corpuscular Hemoglobin 31.5 pg (28.0-33.3); Mean Corpuscular Volume 93.7 fL (83.0-100.0); Mean Platelet Volume 9.9 fL (9.4-12.4); Monocytes # 0.6 K/mcL (0.0-1.3); Monocytes % 9.3 %; Neutrophils # 3.6 K/mcL (1.6-8.9); Platelet Count 255 K/mcL (140-400); Red Blood Count 4.26 M/mcL (3.82-4.97); Red Cell Distribution Width 13.2 % (11.5-14.5); Segmented Neutrophils % 61.2 %; White Blood Count 5.9 K/mcL (4.3-11.1)
[2021-12-24 20:28] LABS: Prothrombin Time 10.7 Seconds (9.4-12.1)
[2021-12-24 20:30] LABS: Activated Partial Thrombo Time 26.6 Seconds (26.0-36.0)
[2021-12-24] MEDS: Nitroglycerin 0.4 MG TAB.SUBL SL PRN ×2 (20:44→20:49)
[2021-12-24 20:52] LABS: Alanine Aminotransferase 12 Units/L (7-52); Albumin 4.2 g/dL (3.5-5.7); Albumin/Globulin Ratio 1.4 (1.1-2.2); Alkaline Phosphatase 75 Units/L (34-104); Aspartate Amino Transferase 15 Units/L (13-39); BUN/Creatinine Ratio 15 (6-26); Bilirubin,Indirect 0.4 mg/dL (0.0-1.0); Bilirubin,Total 0.4 mg/dL (0.3-1.0); Blood Urea Nitrogen 25 mg/dL (8-23); Calcium 8.9 mg/dL (8.6-10.3); Carbon Dioxide 24 mEq/L (23-29); Chloride 104 mEq/L (98-107); Glucose 214 mg/dL (70-105); Lipase 54 Units/L (11-82); Osmolality,Calculated 299 (280-300); Potassium 3.9 mEq/L (3.5-5.1); Sodium 139 mEq/L (136-145); Total Protein 7.2 g/dL (6.4-8.9); Troponin I < 0.03 ng/mL (< 0.04); eGFR For African Americans 37 (> 60); eGFR For Non-African Americans 31 (> 60)
[2021-12-24] MEDS ORDERED: *HR* LORazepam 2 MG/ML VIAL IVP ONE (23:29)
[2021-12-25 00:20] LABS: Influenza A PCR Negative (Negative); Influenza B PCR Negative (Negative); Resp. Syncytial Virus PCR Negative (Negative); SARS-CoV-2 by PCR (In House) Negative (Negative)
[2021-12-25] MEDS ORDERED: Perflutren Lipid Microsphere 1.3 ML in 0.9 % Sodium Chloride 8.7 ML IVP PRN (01:50)
[2021-12-25] MEDS ORDERED: Morphine Sulfate 2 MG/ML SYRINGE IVP PRN (01:52)
[2021-12-25] MEDS ORDERED: Naloxone 0.4 MG/ML INJ IVP PRN (01:56)
[2021-12-25] MEDS ORDERED: *HR* Dextrose 50 % in Water (Syg) 50 ML SYRINGE IVP PRN (02:03)
[2021-12-25] MEDS ORDERED: D5% in Water 1,000 ML IVC PRN (02:03)
[2021-12-25] MEDS ORDERED: polyethylene glycoL 3350 17 GM POWD.PACK PO PRN (02:03)
[2021-12-25] MEDS ORDERED: Dextrose Gel 15 GM/37.5 ML TUBE PO PRN ×2 (02:03)
[2021-12-25] MEDS ORDERED: Albuterol 2.5 MG/3 ML NEBULIZER IH PRN (02:13)
[2021-12-25 03:02] LABS: Hematocrit 36.9 % (35.3-44.9); Hemoglobin 12.4 g/dL (11.5-15.4); Mean Corpuscular HGB Conc 33.6 g/dL (31.6-35.5); Mean Corpuscular Hemoglobin 31.4 pg (28.0-33.3); Mean Corpuscular Volume 93.4 fL (83.0-100.0); Mean Platelet Volume 9.4 fL (9.4-12.4); Platelet Count 214 K/mcL (140-400); Red Blood Count 3.95 M/mcL (3.82-4.97); Red Cell Distribution Width 13.2 % (11.5-14.5); White Blood Count 5.4 K/mcL (4.3-11.1)
[2021-12-25 03:19] LABS: Calcium 8.8 mg/dL (8.6-10.3); Chol/HDL Ratio 8.3 (0-4.9); Magnesium 2.3 mg/dL (1.6-2.6); Potassium 3.8 mEq/L (3.5-5.1)
[2021-12-25] MEDS: Famotidine 20 MG/2 ML VIAL IVP SCH ×2 (05:02→16:14)
[2021-12-25] MEDS: *HR* Heparin 5,000 UNIT/ML VIAL SQ SCH ×3 (05:04→21:31)
[2021-12-25 05:37] LABS: Estimated Average Glucose 177 mg/dl; Hemoglobin A1C 7.8 %
[2021-12-25 05:38] LABS: Thyroid Stimulating Hormone 2.613 mcIU/mL (0.340-5.600)
[2021-12-25] MEDS ORDERED: Insulin LISPRO 300 UNITS/3 ML VIAL SUBQ SCH (06:00)
[2021-12-25] MEDS ORDERED: Regadenoson 0.4 MG/5 ML SYRINGE IVP ONE (06:11)
[2021-12-25] MEDS: Tiotropium 10 INH DOSE IH SCH (08:07)
[2021-12-25] MEDS: Budesonide/Formoterol 160/4.5 1 PUFF INH IH SCH ×2 (08:08→20:16)
[2021-12-25] MEDS ORDERED: carvediloL 6.25 MG TABLET PO SCH (08:54)
[2021-12-25] MEDS ORDERED: Furosemide 20 MG TABLET PO SCH (09:00)
[2021-12-25] MEDS: cilostazoL 100 MG TABLET PO SCH ×2 (10:22→21:32)
[2021-12-25] MEDS: Aspirin Enteric Coated 81 MG Tablet PO SCH (10:23)
[2021-12-25] MEDS: Isosorbide MONOnitrate (24 HR) 30 MG TAB.ER.24H PO SCH (11:42)
[2021-12-25] MEDS: Insulin LISPRO 300 UNITS/3 ML VIAL SUBQ SCH ×2 (12:12→16:41)
[2021-12-25] MEDS: amLODIPine 5 MG TABLET PO SCH (14:36)
[2021-12-25] MEDS: carvediloL 6.25 MG TABLET PO SCH (16:14)
[2021-12-26] MEDS: Insulin LISPRO 300 UNITS/3 ML VIAL SUBQ SCH ×4 (00:46→17:08)
[2021-12-26 02:31] LABS: Hemoglobin 12.8 g/dL (11.5-15.4); Mean Corpuscular HGB Conc 33.7 g/dL (31.6-35.5); Mean Platelet Volume 9.5 fL (9.4-12.4); Platelet Count 223 K/mcL (140-400); Red Blood Count 4.13 M/mcL (3.82-4.97); Red Cell Distribution Width 13.2 % (11.5-14.5); White Blood Count 5.6 K/mcL (4.3-11.1)
[2021-12-26 02:43] LABS: Calcium 8.8 mg/dL (8.6-10.3); Potassium 4.2 mEq/L (3.5-5.1)
[2021-12-26] MEDS: *HR* Heparin 5,000 UNIT/ML VIAL SQ SCH ×3 (05:47→19:31)
[2021-12-26] MEDS: Famotidine 20 MG/2 ML VIAL IVP SCH ×2 (05:53→17:29)
[2021-12-26] MEDS: Budesonide/Formoterol 160/4.5 1 PUFF INH IH SCH ×2 (07:23→20:20)
[2021-12-26] MEDS: Tiotropium 10 INH DOSE IH SCH (07:24)
[2021-12-26] MEDS ORDERED: CITALOPRAM HYDROBROMIDE 40 MG PO SCH (09:00)
[2021-12-26] MEDS ORDERED: 0.9 % Sodium Chloride 1,000 ML IVC SCH (09:00)
[2021-12-26] MEDS ORDERED: [UNRECOGNIZED DRUG - OTHER] IH SCH (09:00)
[2021-12-26] MEDS: Isosorbide MONOnitrate (24 HR) 30 MG TAB.ER.24H PO SCH (09:38)
[2021-12-26] MEDS: Aspirin Enteric Coated 81 MG Tablet PO SCH (09:38)
[2021-12-26] MEDS: carvediloL 6.25 MG TABLET PO SCH ×2 (09:38→17:03)
[2021-12-26] MEDS: cilostazoL 100 MG TABLET PO SCH ×2 (09:39→19:29)
[2021-12-26] MEDS: amLODIPine 5 MG TABLET PO SCH (09:39)
[2021-12-26] MEDS: Cholecalciferol (D-3) 1,000 UNIT (25MCG) TABLET PO SCH (09:39)
[2021-12-26] MEDS: Folic Acid 1 MG TABLET PO SCH ×2 (09:44→19:29)
[2021-12-26] MEDS ORDERED: Budesonide/Formoterol 160/4.5 1 PUFF INH IH SCH (10:00)
[2021-12-26] MEDS ORDERED: ISOVUE-370 200 ML INFUS..BTL ONE (13:46)
[2021-12-26] MEDS ORDERED: Nitroglycerin 1,000 MCG/5 ML VIAL IV ONE (13:46)
[2021-12-26] MEDS ORDERED: Heparin 1,000 UNITS/500 mL 500 ML ONE (13:46)
[2021-12-26] MEDS ORDERED: 0.9 % Sodium Chloride 1,000 ML ONE ×2 (13:46→13:52)
[2021-12-26] MEDS ORDERED: *HR* Heparin 10,000 UNIT/10 ML VIAL ONE (13:46)
[2021-12-26] MEDS ORDERED: *HR* FentaNYL (PF) 100 MCG/2 ML VIAL ONE (13:52)
[2021-12-26] MEDS ORDERED: *HR* Midazolam HCl 2 MG/2 ML VIAL ONE (13:52)
[2021-12-26] MEDS: 0.9 % Sodium Chloride 1,000 ML IVC SCH ×2 (15:34→22:55)
[2021-12-26] MEDS ORDERED: Ezetimibe [Zetia] 10 MG Tablet PO SCH (18:00)
[2021-12-27] MEDS: Insulin LISPRO 300 UNITS/3 ML VIAL SUBQ SCH ×2 (00:32→06:07)
[2021-12-27 01:16] LABS: Magnesium 2.1 mg/dL (1.6-2.6); Phosphorous 3.2 mg/dL (2.7-4.5); Potassium 4.1 mEq/L (3.5-5.1)
[2021-12-27] MEDS: Famotidine 20 MG/2 ML VIAL IVP SCH (06:12)
[2021-12-27] MEDS: *HR* Heparin 5,000 UNIT/ML VIAL SQ SCH (06:12)
[2021-12-27 07:57] VITALS: BP 117/72; PULSE 84; TEMP 97.6
[2021-12-27] MEDS: Budesonide/Formoterol 160/4.5 1 PUFF INH IH SCH (07:59)
[2021-12-27] MEDS: Tiotropium 10 INH DOSE IH SCH (07:59)
[2021-12-27 08:03] VITALS: O2SAT 91
[2021-12-27] MEDS: Cholecalciferol (D-3) 1,000 UNIT (25MCG) TABLET PO SCH (08:46)
[2021-12-27] MEDS: Aspirin Enteric Coated 81 MG Tablet PO SCH (08:47)
[2021-12-27] MEDS: cilostazoL 100 MG TABLET PO SCH (08:47)
[2021-12-27] MEDS: carvediloL 6.25 MG TABLET PO SCH (08:47)
[2021-12-27] MEDS: Folic Acid 1 MG TABLET PO SCH (08:47)
[2021-12-27] MEDS: Isosorbide MONOnitrate (24 HR) 30 MG TAB.ER.24H PO SCH (08:47)
[2021-12-27] MEDS ORDERED: Famotidine 20 MG/2 ML VIAL IVP SCH (18:00)
== END 2021-12-27 10:20 | disposition home or self-care (01) ==
LOC: EMEROOARM 18:31 → 3BNU 18:31 → SUATTDRO 23:24 → 3BNU 23:52
PROVIDERS: ADMIT Student in an Organized Health Care Education/Training Program; ATTEND Internal Medicine